=== PATIENT | male | born 1940 ===

== ENCOUNTER 2022-06-03 20:23 | Inpatient (IN) | payer OTHER ==
--- OUTSIDE RECORDS SUMMARY | 2022-06-03 20:31 | XMS REPORT | Continuity of Care Document ---
:1940 Author Organization [facility] t Address [address] [place] [address] Care Team Providers Name Role Phone Asked, No Pcp Primary Care Physician Unavailable MICKIE MCCLURE Attending Clinician Unavailable RODOLFO SALINAS Attending Clinician Unavailable [place] Attending Clinician Unavailable Grover Montemayor Attending Clinician [place] Admitting Clinician Unavailable Grover Montemayor Admitting Clinician Payers Payer Name Policy Type Policy Number Effective Date Expiration Date S samantha MEDICARE PART A [id number] \\[id number] - MEDICARE INDEMNITY/TRADITIO [id number] NAL CHOICE - AETNA MEDIC[place] B-[place]: [id number] 2006 [employer] 00:00:00 AETNA - NAP [id number] 2000 00:00:00 Problems Condition Condition Condition Status Onset Resolution Last Treating Co mments Source Name Details Category Date Date Treatment Clinician Date EYE INJURY EYE Diagnosis Active 2014-082015-05-26 Memoria INJURY 0-06 15:53:00 l Active 00:00: Bertin 05/26/2015 00 [facility] LT LOWER LT LOWER Diagnosis Active 2014-082015-06-08 Memoria LID LID 0-06 06:07:00 l RETRACTION RETRACTION 00:00: Julio rmann Active 00 05/26/2015 [facility] FACIAL FACIAL Diagnosis Active 2015-04-22 Me moria TRAUMA TRAUMA 8- 14:30:00 l EXPOSED EXPOSED 00:00: Bertin HARDWARE HARDWARE 00 Active 04/10/2015 [facility] FACE FACE Diagnosis Active 2015-04-10 Mem oria HARDWARE HARDWARE - 13:13:00 l Active 00:00: Bertin 04/10/2015 00 [facility] COMPLEX COMPLEX Diagnosis Active 2012-082013-06-03 Memoria FACIAL FX FACIAL FX 0-03 15:29:00 l Active 00:00: [place] 05/23/2013 00 [facility] LACERATION LACERATIO Diagnosis Active 2012-082013-05-23 Memoria TO FACE N TO FACE 0-03 17:12:00 l Active 00:00: [place] 05/23/2013 00 [facility] LIFE LIFE Diagnosis Active 2012-082013-05-24 Mem oria FLIGHT FLIGHT 0-03 12:33:00 l BILLING BILLING 00:00: Bertin Active 00 05/23/2013 [facility] Myocardial Problem Resolve 2015-06-07 Memoria infarction Myocardial d 01:33:24 l (disorder) infarction He rmann (disorder) Resolved Problem 06/07/2015 [facility] [place] Gastroesop Gastroeso Problem Active 2015-06-07 Memoria hageal phageal 01:33:24 l reflux reflux Bertin disease disease (disorder) (disorder) Active Problem 06/07/2015 [facility] [place] 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 [place] (disorder) (disorder) Active Problem 06/07/2015 [facility] Fracture Fracture Problem Active 2015-06-07 Memoria of bone of bone 01:33:24 l (disorder) (disorder) He rmann Active Problem 06/07/2015 [facility] Hyperlipid Hyperlipi Problem Active 2015-06-07 Memoria emia demia 01:33:24 l (disorder) (disorder) He rmann Active Problem 06/07/2015 [facility] FRACTURE FRACTURE Diagnosis Active 2013-06-03 Memoria NOS-CLOSED NOS-CLOSED 15:29:00 l Active Griffin castillo [facility] OPEN WOUND OPEN Diagnosis Active 2015-04-22 Memoria CHEEK-COMP WOUND 14:30:00 l L CHEEK-COMP Griffni n L Active [facility] EYELID EYELID Diagnosis Active 2015-06-08 Me moria RETRACTION RETRACTION 06:07:00 l RIGHT RIGHT [place] LOWER LOWER EYELID EYELID Active [facility] Diverticul Diverticu Problem Resolve 2015-06-07 Memoria ar disease lar d 01:33:24 l (disorder) disease Julissa nn (disorder) Resolved Problem 06/07/2015 [facility], [facility] [place] Hyperchlor Hyperchlo Problem Resolve 2015-06-07 Memoria emia remia d 01:33:24 l (disorder) (disorder) He rmann Resolved Problem 06/07/2015 [facility] [place] Allergies, Adverse Reactions, Alerts This patient has no known allergies or adverse reactions. Social History Social Habit Start Date Stop Date Quantity Comments Source Sex Assigned At [birth year] [facility] 00:00:00 00:00:00 Smoking Status Start Date Stop Date Source Tobacco smoking consumption [facility] [place] [place] unknown Social History 2015-06-04 12:45:09 2015-06-04 12:45:09 [facility] Medications Ordered Filled Start Stop Current Ordering Indication Dosage Frequency Signature Comments Components Source Medication Medication Date Date Medication? Clinician (SIG) Name Name No known No No known Metho di medications 2- medication [facility] 11:[facility]: [facility] Naloxone 2014-08 No Notes: Memoria 0-15 Same as l 15:04: Narcan Flumazenil 2014-08 No Notes: Memor ia 0-15 (Same as: l 15:04: Romazicon) Hydromorpho 2014-08 No Notes: Chon bronson ne 0-15 Same as: l 15:04: Dilaudid Ondansetron 2014-08 No Notes: Chon bronson 0-15 (Same as: l 15:04: Zofran) MEDICATION WASTE Product Size: 4 mg Product Wasted: ___ mg Oxycodone 2014-08 No Notes: Memori a 0-15 (Same as: l 15:04: Roxicodone ) Labetalol 2014-08 No 10 mg, 2 Chon bronson 0-15 mL, Route: l 15:04: IVP, Drug form: INJ, Q5Min, Dosing Weight 74.545, kg, PRN Elevated BP, Start date: 06/04/15 10:04:00, Duration: 5 doses or times, Stop date: Limited # of times Hydralazine 2014-08 No Notes: Chon bronson 0-15 (Same as: l 15:04: Apresoline Bertin 00 ) Push over 5 minutes Medrol 4 mg 2014-08 Yes Special Mem oria oral tablet 0-15 Instructio l 15:02: ns: as directed on package labeling Acetaminoph 2014-08 Yes 1 - 2 tab, Memoria en 300 MG / 0-15 PO, Q6H, l Codeine 15:02: PRN Pain, Julissa nn Phosphate 00 X 4 day, # 30 MG Oral 32 tab, 0 Tablet Refill(s) [Tylenol with Codeine #3] Amoxicillin 2014-08 Yes 875 mg = 1 Memoria 875 MG / 0-15 tab, PO, l Clavulanate 15:02: Q12H, X 3 H ermann 125 MG Oral 00 day, # 6 Tablet tab, 0 [Augmentin Refill(s) 875-mg] ceFAZolin 2014-08 No Notes: Memori a 0-15 Same as: l 12:09: Ancef [place] 00 docusate 2014-08 Yes 100 mg = 1 Mem oria sodium 100 0-14 cap, PO, l mg oral 15:19: Daily, PRN Herm delia capsule 00 Constipati on, # 20 cap, 0 Refill(s) Aspirin 325 2014-08 No 325 mg = 1 Memoria MG Oral 0-14 tab, PO, l Tablet 15:18: Daily, # [place] 00 90 tab, 0 Refill(s) multivitami 2014-08 Yes Daily, 0 Me moria n 0-14 Refill(s) l 15:18: Bertin 00 Ranitidine 2014-08 Yes 150 mg = 1 M emoria 150 MG Oral 0-14 tab, PO, l Tablet 15:18: BID, # 60 Griffin n 00 tab, 0 Refill(s) Ondansetron No 4 mg, Memor ia 04-21 Route: l 16:14: IVP, ONCE, Dosing Weight 75, kg, PRN Nausea & Vomiting, Start date: 04/21/15 11:14:00 Naloxone No 0.04 mg, Memor ia 04-21 Route: l 16:14: IVP, [place] 00 Q2MIN, Dosing Weight 75, kg, PRN Narcotic Reversal, Start date: 04/21/15 11:14:00, Duration: 8 doses or times, Stop date: Limited # of times Flumazenil No 0.2 mg, Chon bronson 04-21 Route: l 16:14: IVP, PRN, [place] 00 Dosing Weight 75, kg, PRN Benzodiaze pine Reversal, Initial dose, Start date: 04/21/15 11:14:00, Duration: 30 day, Stop date: 05/21/15 11:13:00 Hydromorpho No 0.2 mg, Mem oria ne 04-21 Route: l 16:14: IVP, Bertin 00 Q5Min, Dosing Weight 75, kg, PRN Pain Score 7-10, Start date: 04/21/15 11:14:00, Duration: 4 doses or times, Stop date: Limited # of times Ancef Yes Special Memoria 04-21 Instructio l 13:03: ns: Surgical Prophylaxi s Only; For patients < 120 kg Acetaminoph Yes 1-2 tab, Me moria en 325 MG / 04-21 PO, Q4-6H, l Hydrocodone 11:43: PRN Pain, H ermann Bitartrate 00 X 5 day, # 10 MG Oral 30 tab, 0 Tablet Refill(s), [Velpen given to ] patient Amoxicillin Yes 875 mg = 1 Memoria 875 MG / 04-21 tab, PO, l Clavulanate 11:43: Q12H, X 7 H ermann 125 MG Oral 00 day, # 14 Tablet tab, 0 [Augmentin Refill(s), 875-mg] given to patient Nexium Yes PO, Daily, Memor ia 04-21 0 l 11:23: Refill(s) ceFAZolin No 2 gm, 50 Chon bronson 04-21 mL, Route: l 04:00: IVPB, Drug form: INJ, PRE OP, Start date: 04/20/15 23:00:00, Duration: 1 day, Stop date: 04/21/15 22:59:00 Aspirin 325 2014- No 325 mg = 1 Memoria MG Oral 8-28 tab, PO, l Tablet 18:34: Daily, # Bertin 00 30 tab, 0 Refill(s) senna 8.6 2012-08 Yes Danilo 17.2 mg, 2 M emoria mg oral 0-16 Jet tab, PO, l tablet 19:36: Jacob Daily, 30 Herm delia 33 tab, Substituti on Allowed, Maintenanc e, TAB ocular 2012-08 Yes Danilo 1 drp, Memoria lubricant 0-16 Jet Each l solution 19:36: Jacob Affected Her ellis 30 Eye, TID, 1 btl, Substitute Allowed, SOLN docusate 2012-08 Yes Danilo 100 mg, 1 Mem oria sodium 100 0-16 Jet cap, PO, l mg oral 19:36: Jacob BID, 30 Julissa nn capsule 19 cap, Substituti on Allowed, CAP Tobradex 2012-08 Yes Danilo 2 drp, Memori a ophthalmic 0-16 Jet BOTH EYES, l suspension 19:35: Jaocb QID, 1 Her ellis 51 btl, Substitute Allowed, SUSP clindamycin 2012-08 Yes Danilo 300 mg, 1 Memoria 300 mg oral 0-16 Jet cap, PO, l capsule 19:35: Jacob Q6H, 28 Julissa nn 37 cap, Substituti on Allowed bacitracin 2012-08 Yes Danilo 1 appl, Mem oria topical 500 0-16 Jet TOP, Q8H, l units/g 19:34: Jacob 1 tube, Julissa nn ointment 08 Substituti on Allowed, OINT Velpen 2012-08 Yes Danilo 1-2 tab, Memoria 10/325 oral 0-16 Jet PO, Q6H, l tablet 19:33: Jacob PRN, 60 Griffin n 25 tab, Pain, Substituti on Allowed, Maintenanc e, TAB aspirin 81 2012-08 Yes Danilo 81 mg, 1 Me moria mg tablet, 0-16 Jet tab, PO, l enteric 19:33: Jacob Daily, 30 Her ellis coated 15 tab, Substituti on Allowed, ECTAB Tobradex 2012-08 No Natalio 2 drp, M emoria ophthalmic 0-15 r Gopal Route: l suspension 18:00: Montemayor BOTH EYES, Bertin 00 QID, Drug form: SUSP, Start date: 06/04/13 13:00:00, Duration: 30 day, Stop date: 07/04/13 9:00:00(to bramycin-d examethaso ne 0.3-0.1% oph 2.5ml BRAYAN) Shake well before using. (Same As: Tobradex) clindamycin 2012-08 No Natalio 900 mg, Memoria 0-15 r Gopal Route: l 17:00: [place] IVPB, Griffin n 00 ABXQ8H, Dosing Weight 79.545, kg, Start date: 06/04/13 12:00:00, Duration: 30 day, Stop date: 07/04/13 4:00:00 Velpen 2012-08 No Kenneth 1 tab, Memoria 10/325 oral 0-14 Sullivan Route: PO, l tablet 20:57: Drug Form: Julissa nn 00 TAB, Dosing Weight 79.545, kg, Q6H, PRN Pain, Start date: 06/03/13 15:57:00, Duration: 30 day, Stop date: 07/03/13 15:56:00Do not exceed 4gm/day of acetaminop hen. (Same as: Velpen 325/10) Velpen 2012-08 No John 1 tab, Memoria 10/325 oral 0-14 Booty Route: PO, l tablet 17:00: Nicole Loredo Drug Form: Bertin 00 TAB, Dosing Weight 79.545, kg, Q6H, Start date: 06/03/13 12:00:00, Duration: 30 day, Stop date: 07/03/13 11:59:00Do not exceed 4gm/day of acetaminop hen. (Same as: Velpen 325/10) dexamethaso 2012-08 No Natalio 10 mg, 1 Memoria ne 0-14 r Gopal mL, Route: l 17:00: [place] IVP, Drug He rmann 00 form: INJ, Q6H, Dosing Weight 79.545, kg, Start date: 06/03/13 12:00:00, Duration: 30 day, Stop date: 07/03/13 11:59:00 Lasix 2012-08 No John 20 mg, 2 Memoria 0-14 Booty mL, Route: l 15:18: Nicole Loredo IV, Drug Her ellis form: INJ, ONCE, Dosing Weight 79.545, kg, Start date: 06/03/13 10:18:00, Stop date: 06/03/13 10:18:00(S yuriy as: Lasix) MiraLax 2012-08 No John 17 gm, 1 Memor ia 0-14 Booty pkt, l 15:16: Nicole Loredo Route: PO, H ermann 00 Drug form: PWDR, ONCE, Dosing Weight 79.545, kg, Start date: 06/03/13 10:16:00, Duration: 1 doses or times, Stop date: 06/03/13 10:16:00Di ssolve in 8 oz of water or juice. (Same as: Miralax) Artificial 2012-08 No Marii 1 drp, Memoria Tears 0-14 Karmen Route: l 14:00: Wegge Each [place] 00 Affected Eye, TID, Drug form: SOLN, Start date: 06/03/13 9:00:00, Duration: 30 day, Stop date: 07/03/13 8:59:00 senna 2012-08 No Roderick 17.2 mg, 2 Mem oria 0-14 Busby tab, l 14:00: Blank Route: PO, Herm delia 00 Drug Form: TAB, Dosing Weight 79.545, kg, Daily, Start date: 06/03/13 9:00:00, Duration: 30 day, Stop date: 07/03/13 8:59:00([facility] as: Senokot) clindamycin 2012-08 No Bree 600 mg, 4 M emoria 0-14 Kemar mL, Route: l 13:00: IVPB, Drug Bertin form: INJ, ABXQ8H, Dosing Weight 79.545, kg, Start date: 06/03/13 8:00:00, Duration: 30 day, Stop date: 07/03/13 7:59:00(cl indamycin 150 mg/1 ml (600 mg/4 ml VL) INJ) (Same As: Cleocin) Insulin 2012-08 No Stevo 10 unit, Mem oria regular 0-14 Justin Byron 0.1 mL, l 11:00: Hernandez Route: [place] 00 SUB-Q, Drug form: SOLN, PRN, Dosing Weight 79.545, kg, PRN Abnormal Lab Result, Start date: 06/03/13 6:00:00, Duration: 30 day, Stop date: 07/03/13 4:59:00, For FSBG 200mg/dL - 249mg/dL 60 units) Stable for 28 days at room temperatur e Expires in days from ____Date Dextrose 2012-08 No Stevo 25 gm, 50 M emoria 50% Syringe 0-14 Justin Byron mL, Route: l 11:00: Hernandez IVP, Drug Form: INJ, Dosing Weight 79.545, kg, PRN, PRN Abnormal Lab Result, Start date: 06/03/13 6:00:00, Duration: 30 day, Stop date: 07/03/13 4:59:00, For FSBG For FSBG < 40mg/dL docusate 2012-08 No Roderick 100 mg, 1 M emoria sodium 100 0-13 Busby cap, l mg oral 22:00: Blank Route: PO, H ermann capsule 00 Drug form: CAP, BID, Dosing Weight 79.545, kg, Start date: 06/02/13 17:00:00, Duration: 30 day, Stop date: 07/02/13 16:59:00(S yuriy as: Colace) (Do Not Crush) bacitracin 2012-08 No Ashley 1 appl, Mem oria topical 0-13 Radha Route: l 21:00: Irving WEAVER, Q8H, [place] 00 Drug form: OINT, Start date: 06/02/13 16:00:00, Duration: 30 day, Stop date: 07/02/13 15:59:00 acetaminoph 2012-08 No John 975 mg, 3 Memoria en 0-13 Booty tab, l 17:00: Rivera Jr Route: PO, H ermann 00 Drug form: TAB, Q6H, Dosing Weight 79.545, kg, Start date: 06/02/13 12:00:00, Duration: 30 day, Stop date: 07/02/13 11:59:00Do not exceed 4 gm/day. (Same as: Tylenol) OXYcodone 5 2012-08 No John 5 mg, 1 Me moria mg 0-13 Booty tab, l immediate 17:00: Nicole Loredo Route: PO, Bertin release 00 Drug form: TAB, Q4H, Dosing Weight 79.545, kg, Start date: 06/02/13 12:00:00, Duration: 30 day, Stop date: 07/02/13 11:59:00(S yuriy as: Roxicodone ) OXYcodone 5 2012-08 No John 5 mg, 1 Me moria mg 0-13 Booty tab, l immediate 14:06: Nicole Loredo Route: PO, [place] release 00 Drug form: TAB, Q6H, Dosing Weight 79.545, kg, PRN Pain, Start date: 06/02/13 9:06:00, Duration: 30 day, Stop date: 07/02/13 9:05:00(Sa me as: Roxicodone ) dexamethaso 2012-08 No Roderick 10 mg, 2.5 Memoria ne 0-13 Busby mL, Route: l 05:00: Blank IVP, Drug Julissa nn 00 form: INJ, Q6H, Dosing Weight 79.545, kg, Start date: 06/02/13 0:00:00, Stop date: 06/02/13 23:59:00Co ncentratio n: 4mg/ml Sublimaze 2012-08 No Roderick 1,000 Chon bronson 1,000 0-12 Busby microgram, l microgram 21:54: Blank 20 mL, Her ellis 00 Rate: Titrate as directed, Dosing Weight 79.545, kg, Route: IV, Total Volume: 20 ml, Duration: 30 day, Stop date: 07/01/13 16:53:00, Replace Every: 24 hr FENTanyl 2012-08 No Sunday 1,000 Memoria 1000 mcg in 0-12 Rehrer microgram, l 20 mL 21:43: 20 mL, Bertin (titrate) 00 Rate: IV 1,000 Titrate as microgram directed, Dosing Weight 79.545, kg, Route: IV, Total Volume: 20 ml, Duration: 30 day, Stop date: 07/01/13 16:43:00, Replace Every: 24 hr propofol 10 2012-08 No Roderick 1,000 mg, Memoria mg/ml 0-12 Busby 100 mL, l (titrate) 21:41: Blank Rate: Herm delia 1,000 mg 00 Titrate as directed, Dosing Weight 79.545, kg, Route: IV, Total Volume: 100 ml, Start date: 06/01/13 16:41:00, Duration: 30 day, Stop date: 07/01/13 16:40:00, Replace Every: 12 hrIf Diprivan - change bottle & tubing every 12 hr Per state nursing law propofol can only be given by a nurse if patient is intubated or being intubated (unless the nurse is a BOTTLE LABEL INSPECTOR). Same as: Diprivan normal 2012-08 No Bree 1,000 mL, Memori a saline 0.9% 0-11 Kemar Rate: 100 l IV 1,000 mL 10:49: ml/hr, Herm delia 00 Infuse over: 10 hr, Route: IV, Dosing Weight 79.545 kg, Total Volume: 1,000, Start date: 05/31/13 5:49:00, Duration: 30 day, Stop date: 06/30/13 5:48:00 Fish Oil 2012-08 Yes 1 cap, PO, Mem oria 0-09 Daily, l 21:14: Substituti Bertin 02 on Allowed aspirin 325 2012-08 No 325 mg, 1 M emoria mg tablet 0-09 tab, PO, l 21:13: Q4H, PRN, Bertin 55 60 tab, Fever, Substituti on Allowed, TAB Unknown 2012-08 No 1 tab, PO, Chon bronson Home 0-09 BID, PRN, l Medication 21:13: constipati H ermann 15 on, Substituti on Allowed, OTC stool stoftenerO TC stool stoftener Zetia 10 mg 2012-08 Yes 10 mg, 1 Me moria oral tablet 0-09 tab, PO, l 21:12: Daily, 90 [place] 54 tab, Substituti on Allowed, TAB Lipitor 80 2012-08 Yes 80 mg, 1 Mem oria mg oral 0-09 tab, PO, l tablet 21:12: Daily, 30 Griffin n 39 tab, Substituti on Allowed, TAB Zocor 2012-08 No Stevo 40 mg, 2 Memor ia 0-08 Justin Byron tab, l 02:00: Hernandez Route: PO, [place] 00 Drug form: TAB, Bedtime, Dosing Weight 79.545, kg, Start date: 05/27/13 21:00:00, Duration: 30 day, Stop date: 06/25/13 21:00:00(S yuriy as: Zocor) clindamycin 2012-08 No Roderick 900 mg, 6 Memoria 0-07 Busby mL, Route: l 15:00: Blank IVPB, Drug Herm delia 00 form: INJ, ABXQ8H, Dosing Weight 79.545, kg, Start date: 05/27/13 10:00:00, Stop date: 06/02/13 2:00:00( me As: Cleocin) docusate 2012-08 No Stevo 100 mg, 1 M emoria sodium 100 0-07 Justin Byron cap, l mg oral 15:00: Hernandez Route: PO, Herm delia capsule 00 Drug form: CAP, Q12H, Dosing Weight 95, kg, Start date: 05/27/13 10:00:00, Duration: 30 day, Stop date: 06/26/13 9:00:00([facility] as: Colace) (Do Not Crush) glucagon 2012-08 No Mickey 1 mg, Chon bronson 0-06 Boutris Route: IM, l 17:12: Drug form: Bertin 00 PDR/INJ, PRN, Dosing Weight 79.545, kg, PRN Blood Glucose Results, Start date: 05/26/13 12:12:00, Duration: 30 day, Stop date: 06/25/13 11:11:00 Dextrose 2012-08 No Stevo 25 gm, 50 M emoria 50% Syringe 0-06 Justin Byron mL, Route: l 17:12: Hernandez IVP, Drug [place] 00 Form: INJ, Dosing Weight 79.545, kg, PRN, PRN Blood Glucose Results, Start date: 05/26/13 12:12:00, Duration: 30 day, Stop date: 06/25/13 11:11:00 insulin 2012-08 No Stevo 3 unit, Chon bronson aspart 0-06 Justin Byron 0.03 mL, l 17:12: Hernandez Route: Bertin 00 SUB-Q, Drug form: SOLN, TID-Before Meals, Dosing Weight 79.545, kg, PRN Blood Glucose Results, Start date: 05/26/13 12:12:00, Duration: 30 day, Stop date: 06/25/13 12:11:00Ro ll in palms of hands gently; Do not shake vigorously . (Same as: NovoLog) "single patient use only" Stable for 28 days at room temperatur e. Expires in days from ____Date simvastatin 2012-08 No Stevo 40 mg, 1 Memoria 0-06 Justin Byron tab, l 02:00: Hernandez Route: PO, Drug form: TAB, Bedtime, Dosing Weight 79.545, kg, Start date: 05/25/13 21:00:00, Duration: 30 day, Stop date: 06/23/13 21:00:00(S yuriy as: Zocor) Velpen 5/325 2012-08 No Sunday 1 tab, Chon bronson oral tablet 0-05 Rehrer Route: PO, l 17:00: Drug Form: [place] 00 TAB, Dosing Weight 79.545, kg, Q4H, Start date: 05/25/13 12:00:00, Duration: 30 day, Stop date: 06/24/13 8:00:00(Sa me as: Velpen 325/5) Do not exceed 4gm/day of acetaminop hen. famotidine 2012-08 No Mickey 20 mg, 1 Memoria 0-05 Boutris tab, l 15:00: Route: PO, Drug form: TAB, Q24H, Dosing Weight 79.545, kg, Start date: 05/25/13 10:00:00, Duration: 30 day, Stop date: 06/23/13 10:00:00(S yuriy as: Pepcid) dexamethaso 2012-08 No Newell 4 mg, 2 M emoria ne 0-05 Aaron tab, l 14:00: Aijazi Route: PO, Julissa Drug form: TAB, Q12H, Dosing Weight 79.545, kg, Start date: 05/25/13 9:00:00, Duration: 3 day, Stop date: 05/27/13 21:00:00, Pediatric DosingPedi atric DosingGive with food. (Same As: Decadron) Velpen 5/325 2012-08 No Roderick 1 tab, M emoria oral tablet 0-05 Busby Route: PO, l 13:31: Blank Drug Form: Herm delia 00 TAB, Dosing Weight 79.545, kg, Q4H, PRN Pain, Start date: 05/25/13 8:31:00, Duration: 30 day, Stop date: 06/24/13 8:30:00(Sa me as: Velpen 325/5) Do not exceed 4gm/day of acetaminop hen. clindamycin 2012-08 No Newell 600 mg, 4 Memoria 0-05 Aaron mL, Route: l 13:00: Aijazi IVPB, Drug Julissa nn 00 form: INJ, ABXQ8H, Dosing Weight 79.545, kg, Start date: 05/25/13 8:00:00, Duration: 30 day, Stop date: 06/24/13 0:00:00(cl indamycin 150 mg/1 ml (600 mg/4 ml VL) INJ) (Same As: Cleocin) Zofran 2012-08 No Newell 4 mg, Memoria 0-04 Aaron Route: IV, l 21:18: Aijazi Drug form: Julissa nn 00 INJ, Q4H, Dosing Weight 79.545, kg, PRN Nausea, Start date: 05/24/13 16:18:00, Duration: 30 day, Stop date: 06/23/13 16:17:00 Zofran 2012-08 No Newell 4 mg, 2 Memori a 0-04 Aaron mL, Route: l 21:17: Aijazi IVP, Drug Griffin n 00 form: INJ, ONCE, Dosing Weight 79.545, kg, Start date: 05/24/13 16:17:00, Stop date: 05/24/13 16:17:00(S yuriy as: Zofran) aspirin 2012-08 No Jason Elkin 81 mg, 1 Me moria 0-04 Fuentes tab, l 20:14: Route: PO, Bertin 00 Drug form: ECTAB, Daily, Dosing Weight 79.545, kg, Priority: STAT, Start date: 05/24/13 15:14:00, Duration: 30 day, Stop date: 06/23/13 9:00:00Do not crush or chew. (Same As: Ecotrin) Velpen 2012-08 No Newell 1 tab, Memoria 10/325 oral 0-04 Aaron Route: PO, l tablet 17:00: Aijazi Drug Form: Her ellis 00 TAB, Dosing Weight 79.545, kg, Q4H, Start date: 05/24/13 12:00:00, Duration: 30 day, Stop date: 06/23/13 8:00:00Do not exceed 4gm/day of acetaminop hen. (Same as: Velpen 10) Velpen 2012-08 No Newell 1 tab, Memoria 10/325 oral 0-04 Aaron Route: PO, l tablet 16:12: Aijazi Drug Form: Her ellis 00 TAB, Dosing Weight 79.545, kg, Q4H, PRN Pain, Start date: 05/24/13 11:12:00, Duration: 30 day, Stop date: 06/23/13 11:11:00Do not exceed 4gm/day of acetaminop hen. (Same as: Velpen 32510) pneumococca 2012-08 No SYSTEM 0.5 ml, M emoria l 23-valent 0-04 SYSTEM Route: IM, l vaccine 14:00: Drug Form: Herm delia 00 INJ, Start date: 05/24/13 9:00:00, Stop date: 05/24/13 9:00:00 bisacodyl 2012-08 No Anthony 10 mg, 1 Me moria 0-04 Artem supp, l 14:00: Allenson Route: SC, Her ellis 00 Drug form: SUPP, Daily, Dosing Weight 95, kg, Start date: 05/24/13 9:00:00, Duration: 30 day, Stop date: 06/22/13 9:00:00([facility] As: Dulcolax, Bisco-Lax) Ancef 2012-08 No Audra 2 gm, Memoria 0-04 Radha Route: l 13:45: Hammer IVPB, Bertin 00 ONCE, Dosing Weight 79.545, kg, Start date: 05/24/13 8:45:00, Duration: 1 doses or times, Stop date: 05/24/13 8:45:00 Lovenox 2012-08 No Jean 30 mg, 0.3 M emoria 0-04 Morgan mL, Route: l 07:00: Gutiérrez SUB-Q, [place] 00 Drug form: INJ, Q12H, Dosing Weight 79.545, kg, Start date: 05/24/13 2:00:00, Duration: 30 day, Stop date: 06/22/13 16:00:00(S yuriy as: Lovenox) Unasyn 2012-08 No Anthony 1.5 gm, 1 Chon bronson 0-04 Artem ea, Route: l 05:00: Allenson IV, Drug Julissa nn form: PDR/INJ, Q6H, Dosing Weight 95, kg, Start date: 05/24/13 0:00:00, Duration: 1 day, Stop date: 05/24/13 18:00:00Do sing based on Ampicillin component (Same as: Unasyn) famotidine 2012-08 No Stevo 20 mg, 2 Memoria 0-04 Justin Byron mL, Route: l 02:00: Hernandez IVPB, Drug [place] form: INJ, Q12H, Dosing Weight 95, kg, Start date: 05/23/13 21:00:00, Duration: 30 day, Stop date: 06/22/13 9:00:00(Sa me as: Pepcid) Can be dilute in 5-10cc NS IVP: Slow IV push over at least 2 minutes. docusate 2012-08 No Anthony 100 mg, 10 M emoria 0-04 Artem mL, Route: l 02:00: Allenson NG, Drug Julissa nn form: LIQ, Q12H, Dosing Weight 95, kg, Start date: 05/23/13 21:00:00, Duration: 30 day, Stop date: 06/22/13 9:00:00(Sa me as: Colace) FENTanyl 2012-08 No Anthony 20 mL, Memor ia 1000 mcg in 0-04 Artem Rate: l 20 mL 00:31: Allenson Titrate., Her ellis (titrate) 00 Dosing IV 20 mL Weight 95, kg, Route: IV, Total Volume: 20, Duration: 30 day, Stop date: 06/22/13 19:31:00, Replace Every: 24 hr midazolam 2012-08 No Stevo 50 mg, 50 Memoria 50 mg in NS 0-04 Justin Byron mL, Rate: l 50 ml 00:31: Hernandez 1 mg/hr. Bertin (titrate) 00 Titrate to IV 50 mg maintain goal RASS score., Dosing Weight 95, kg, Route: IV, Total Volume: 50, Duration: 30 day, Stop date: 06/22/13 19:30:00, Replace Every: 24 hr(Same as: Versed) Insulin 2012-08 No Mickey 4 unit, Mem oria regular 0-04 Boutris 0.04 mL, l 00:31: Route: [place] 00 SUB-Q, Drug form: SOLN, PRN, Dosing Weight 95, kg, PRN Abnormal Lab Result, Start date: 05/23/13 19:31:00, Duration: 30 day, Stop date: 06/22/13 19:30:00, For [facility] 126mg/dL - 140mg/dL 60 units) Stable for 28 days at room temperatur e Expires in days from ____Date Dextrose 2012-08 No Mickey 12.5 gm, M emoria 50% Syringe 0-04 Boutris 25 mL, l 00:31: Route: [place] 00 IVP, Drug Form: INJ, Dosing Weight 95, kg, PRN, PRN Abnormal Lab Result, Start date: 05/23/13 19:31:00, Duration: 30 day, Stop date: 06/22/13 19:30:00, For FSBG 40mg/dL - 60mg/dLFor FSBG 40mg/dL - 60mg/dL D5W 1/2NS + 2012-08 No Jean 1,000 mL, Memoria KCL 20mEq/L 0-04 Morgan Rate: 100 l 1000ml 00:27: Gutiérrez ml/hr, Bertin (Premix) 00 Infuse 1,000 mL over: 10 hr, Route: IV, Dosing Weight 95 kg, Total Volume: 1,000, Start date: 05/23/13 19:27:00, Duration: 30 day, Stop date: 06/22/13 19:26:00PR EMIX IV - Do Not Alter Lactated 2012-08 No Ashley 1,000 mL, Mem oria Ringers IV 0-03 Radha Rate: 100 l 1,000 mL 23:20: Irving ml/hr, Griffin n 00 Infuse over: 10 hr, Route: IV, Dosing Weight 95 kg, Total Volume: 1,000, Priority: STAT, Start date: 05/23/13 18:20:00, Stop date: 06/22/13 18:19:00 Lactated 2012-08 No Eddie 500 mL, Memori a Ringers 0-03 Edgar Rate: 500 l (Bolus) IV 23:19: Hunter ml/hr, H ermann 500 mL 00 Infuse over: 1 hr, Route: IV, Dosing Weight 95 kg, Total Volume: 500, Bolus Dose, Priority: STAT, Start date: 05/23/13 18:19:00, Duration: 1 doses or times, Stop date: 05/23/13 19:18:00 Visipaque 2012-08 No Nick G 150 mL, Memoria 320mg/ml 0-03 Jose Alejandro Route: l 21:47: IVP, Drug [place] 00 Form: SOLN, Dosing Weight 95, kg, ONCALL, STAT, Start date: 05/23/13 16:47:00, Duration: 1 doses or times, Dose = 2.2ml/kg, Max dose = 150ml -- "To be infused by Radiology Staff ONLY"Dose = 2.2ml/kg, Max dose = 150ml -- "To be infused by Radiology Staff ONLY" FENTanyl 2012-08 No Eddie 1,000 Memoria 1000 mcg in 0-03 Edgar microgram, l 20 mL 21:19: Hunter 20 mL, Griffin n (titrate) 00 Rate: IV 1,000 Titrate as microgram directed, Dosing Weight 95, kg, Route: IV, Total Volume: 20 ml, Duration: 30 day, Stop date: 06/22/13 16:19:00, Replace Every: 24 hr FENTanyl 2012-08 No Stevo 1,000 Memor ia 1000 mcg in 0-03 Justin Byron microgram, l 20 mL 21:13: Hernandez 20 mL, Bertin (titrate) 00 Rate: IV 1,000 Titrate as microgram directed, Dosing Weight 95, kg, Route: IV, Total Volume: 20 ml, Duration: 30 day, Stop date: 06/22/13 16:12:00, Replace Every: 24 hr tetanus-dip 2012-08 No Paulina M 0.5 mL, Memoria htheria 0-03 Mason Route: IM, l toxoids 21:12: Dosing [place] 00 Weight 95, kg, ONCE, STAT, Start date: 05/23/13 16:12:00, Stop date: 05/23/13 16:12:00 Ancef 2012-08 No Eddie 1 gm, Memoria 0-03 Edgar Route: l 20:47: Hunter IVPB, Drug Her ellis 00 form: PDR/INJ, ONCE, Dosing Weight 95, kg, Priority: STAT, Start date: 05/23/13 15:47:00, Stop date: 05/23/13 15:47:00(S yuriy As: Ancef, Kefzol) tetanus 2012-08 No Paulina M 0.5 ml, Mem oria toxoid 0-03 Mason Route: IM, l 20:47: Drug Form: Bertin 00 INJ, Dosing Weight 95, kg, ONCE, STAT, Start date: 05/23/13 15:47:00, Stop date: 05/23/13 15:47:00[facility] refrigerat ed. succinylcho 2012-08 No Eddie 150 mg, Mem oria line 0-03 Edgar Route: IV, l 20:31: Hunter ONCE, Dosing Weight 95, kg, Start date: 05/23/13 15:31:00, Stop date: 05/23/13 15:31:00 ketamine 2012-08 No Eddie 100 mg, Memori a 0-03 Edgar Route: IV, l 20:31: Hunter ONCE, Dosing Weight 95, kg, Start date: 05/23/13 15:31:00, Stop date: 05/23/13 15:31:00 fentanyl 2012-08 No Eddie 100 Memoria 0-03 Edgar microgram, l 20:30: Hunter Route: IV, Her ellis 00 ONCE, Dosing Weight 95, kg, Start date: 05/23/13 15:30:00, Stop date: 05/23/13 15:30:00 propofol 10 2012-08 No Stevo 1,000 mg, Memoria mg/ml 0-03 Justin Byron 100 mL, l (titrate) 20:24: Hernandez Rate: Bertin 1,000 mg 00 Titrate as directed, Route: IV, Total Volume: 100 ml, Start date: 05/23/13 15:24:00, Duration: 30 day, Stop date: 06/22/13 15:23:00, Replace Every: 24 hrIf Diprivan - change bottle & tubing every 12 hr Per state nursing law propofol can only be given by a nurse if patient is intubated or being intubated (unless the nurse is a BOTTLE LABEL INSPECTOR). Same as: Diprivan Saline 2012-08 No Lea K 5 mL, Memoria Flush 0.9% 0-03 Gutiérrez Route: l 19:57: IVP, Drug [place] 00 Form: INJ, kg, PRN, PRN Line Flush, Administer at least once every 12 hours, Start date: 05/23/13 14:57:00, Duration: 30 day, Stop date: 06/22/13 14:56:00(S yuriy as: BD Posiflush) Immunizations Ordered Immunization Filled Immunization Date Status Commen ts Source Name Name pneumococcal 2013-05-24 Completed [facility] 23-valent vaccine 21:49:00 [place] pneumococcal 2013-05-24 Completed [facility] 23-valent vaccine 21:49:00 Bertin tetanus-diphtheria 2013-05-23 Completed Memori al toxoids 21:12:00 Bertin tetanus-diphtheria 2013-05-23 Completed Memori al toxoids 21:12:00 Bertin Vital Signs Vital Name Observation Time Observation Value Comments Source Systolic (mm Hg) 2015-06-04 15:50:00 Chon rial Bertin Diastolic (mm Hg) 2015-06-04 15:50:00 Mem orial [place] Heart Rate 2015-06-04 15:50:00 [facility] Bertin Respitory Rate 2015-06-04 15:50:00 Memori al [place] Systolic (mm Hg) 2015-06-04 15:30:00 Chon rial [place] Diastolic (mm Hg) 2015-06-04 15:30:00 Mem orial Bertin Respitory Rate 2015-06-04 15:30:00 Memori al [place] Systolic (mm Hg) 2015-06-04 15:15:00 Chon rial [place] Diastolic (mm Hg) 2015-06-04 15:15:00 Mem orial [place] Respitory Rate 2015-06-04 15:15:00 Memori al [place] Heart Rate 2015-06-04 12:06:00 [facility] Bertin BMI Calculated 2015-06-03 15:20:00 Memori al Bertin Height 2015-06-03 15:20:00 165.1 cm [facility] [place] Weight 2015-06-03 15:20:00 [facility] Bertin Systolic (mm Hg) 2015-04-21 17:08:00 Chon rial [place] Diastolic (mm Hg) 2015-04-21 17:08:00 Mem orial Bertin Respitory Rate 2015-04-21 17:08:00 Memori al [place] Heart Rate 2015-04-21 17:08:00 [facility] [place] Systolic (mm Hg) 2015-04-21 16:30:00 Chon rial Bertin Diastolic (mm Hg) 2015-04-21 16:30:00 Mem orial Bertin Respitory Rate 2015-04-21 16:30:00 Memori al [place] Systolic (mm Hg) 2015-04-21 16:15:00 Chon rial [place] Diastolic (mm Hg) 2015-04-21 16:15:00 Mem orial [place] Respitory Rate 2015-04-21 16:15:00 Memori al [place] Height 2015-04-21 11:21:00 165.1 cm [facility] [place] Weight 2015-04-21 11:21:00 [facility] Bertin BMI Calculated 2015-04-21 11:21:00 Memori al [place] Heart Rate 2015-04-21 11:21:00 [facility] [place] BMI Calculated 2015-04-17 18:15:00 Memori al Bertin Weight 2015-04-17 18:15:00 [facility] Bertin Height 2015-04-17 18:15:00 165.1 cm [facility] [place] Diastolic (mm Hg) 2013-06-05 16:00:00 Mem orial Bertin Systolic (mm Hg) 2013-06-05 16:00:00 Chon rial [place] Temperature Oral (F) 2013-06-05 16:00:00 98.9 F [facility] Bertin Heart Rate 2013-06-05 16:00:00 [facility] Bertin Respitory Rate 2013-06-05 16:00:00 Memori al Bertin Temperature Oral (F) 2013-06-05 12:00:00 98.4 F [facility] Bertin Heart Rate 2013-06-05 12:00:00 [facility] Bertin Respitory Rate 2013-06-05 12:00:00 Memori al [place] Systolic (mm Hg) 2013-06-05 12:00:00 Chon rial [place] Diastolic (mm Hg) 2013-06-05 12:00:00 Mem orial [place] Respitory Rate 2013-06-05 08:21:00 Memori al Bertin Diastolic (mm Hg) 2013-06-05 08:21:00 Mem orial Bertin Systolic (mm Hg) 2013-06-05 08:21:00 Chon rial [place] Heart Rate 2013-06-05 08:21:00 [facility] Bertin Temperature Oral (F) 2013-06-05 08:21:00 98.9 F [facility] [place] Height 2013-05-24 10:12:00 167.64 cm [facility] Bertin Height 2013-05-24 05:53:00 167.64 cm [facility] Bertin Weight 2013-05-24 05:53:00 [facility] [place] Height 2013-05-24 01:50:00 167.64 cm [facility] [place] Weight 2013-05-24 01:50:00 [facility] Bertin Weight 2013-05-23 20:24:00 [facility] [place] Procedures Procedure Date / Time Performed Performing Clinician Sourc e Colonoscopy [facility] [place] [facility]or [facility]astinum [facility] operations 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 Exploratory laparotomy [facility] Eye [facility] Operation [facility] Plan of Care Planned Activity Planned Date Details Comments Source Future Scheduled 2022-05-12 HEPATITIS B VACCINES Met [facility] Test 09:44:35 (1 of 3 - 3-dose series) [code = HEPATITIS B VACCINES (1 of 3 - 3-dose series)] Future Scheduled 2022-05-12 COVID-19 VACCINE (#1) [facility] Test 09:44:35 [code = COVID-19 VACCINE (#1)] Future Scheduled 2022-05-12 SHINGLES VACCINES (1 [facility] Test 09:44:35 of 2) [code = SHINGLES VACCINES (1 of 2)] Future Scheduled 2022-05-12 65+ [facility] 09:44:35 VACCINE (1 - PCV) [code = 65+ PNEUMOCOCCAL VACCINE (1 - PCV)] Future Scheduled 2022-05-12 INFLUENZA VACCINE Method [facility] Test 09:44:35 [code = INFLUENZA VACCINE] Encounters Start End Encounter Admission Attending Care Care Encounter Source Date/Time Date/Time Type Type Clinicians Facility Department ID 2021-03-24 Outpatient MICKIE MCCLURE [facility] [id number] [place] 22:04:44 Health 2022-03-28 2022-03-28 Outpatient BRAD, [facility] [id number] [facility] 08:14:24 09:29:31 RODOLFO benito of Medicin e 2021-12-27 2021-12-27 Outpatient BRAD, [facility] [id number] [facility] 08:08:17 08:46:57 RODOLFO benito of Medicin e 2021-11-15 2021-11-15 Outpatient BRAD, [facility] [id number] [facility] 08:56:36 09:43:28 RODOLFO Downs e of Medicin e 2021-09-22 2021-09-22 Outpatient BRAD, [facility] [id number] [facility] 09:16:29 09:52:33 RODOLFO Downs e of Medicin e 2021-08-25 2021-08-25 Outpatient BRAD, [facility] [id number] [facility] 10:13:11 11:42:47 RODOLFO benito of Medicin e 2021-07-29 2021-07-29 Outpatient BRAD, [facility] [id number] [facility] 11:45:02 13:16:06 RODOLFO benito of Medicin e 2016-07-12 2016-07-12 Outpatient Maluf_C [facility]G [id number] [place] 03:16:00 03:16:00 [facility] 2015-06-04 2015-06-05 OBS [facility] [id number] Memoria 10:29:00 04:59:[address] 2015-06-04 2015-06-04 Outpatient [facility] [id number] 05:29:00 23:59:00 Christopher 01 Gopal 2015-04-21 2015-04-22 OBS Day nullFlavo [facility] [id number] Memoria 10:11:00 04:59:00 Surgery r [place] 00 l [facility] 2015-04-21 2015-04-21 Outpatient Sim [facility] [id number] 05:11:00 23:59:00 Christopher 00 [facility] 2015-03-30 2015-03-31 Outpt Diag nullFlavo [facility] [id number] Memoria 13:32:00 04:59:00 Services r Outpatient 00 l Imaging [facility] 2015-03-30 2015-03-30 Outpatient Sim [facility] [id number] 08:32:00 23:59:00 Christopher 00 [facility] 2013-05-23 2013-06-05 Inpatient nullFlavo [facility] [id number] Memoria 19:18:00 15:30:00 [facility] 67 l [facility] 2013-05-23 2013-06-05 Outpatient [id number]. [id number]. 4 [id number] Memoria 14:58:00 15:30:00 [id number] l 3.615.0.1 5.0.[address] [facility] 2013-05-23 2013-06-05 Outpatient 2.16.840. 2.16.840.1. 4 [id number] Memoria 14:58:00 15:30:00 [id number] l 3.615.0.1 5.0.101 Griffin n 01 [facility] 2013-05-23 2013-06-05 Outpatient 2.16.840. 2.16.840.1. 4 [id number] Memoria 14:58:00 15:30:00 [id number] l 3.615.0.1 5.0.101 Griffin n [facility] 2013-05-23 2013-06-05 Outpatient 2.16.840. 2.16.840.1. 4 [id number] Memoria 14:58:00 15:30:00 [id number] l 3.615.0.1 5.0.101 Griffin n [facility] 2013-05-23 2013-06-05 Outpatient 2.16.840. 2.16.840.1. 4 [id number] Memoria 14:58:00 15:30:00 [id number] 67 l 3.615.0.1 5.0.[address] [facility] 2013-05-23 2013-05-23 AA nullFlavo [facility] [id number] Memoria 14:45:00 23:59:00 r Medical 70 l [facility] Results Test Description Test Time Test Comments Results Result Comments Source CHEM [facility] 2015-06-04 11:42:00 Test Item Value Reference Range Interpretation Comme nts eGFR (test code = eGFR) 68 [facility]2015-10-15 11:42:00 Test Item Value Reference Range Interpretation Comments CO2 (test code = CO2) 31 24-32 [facility]2015-10-15 11:42:00 Test Item Value Reference Range Interpretation Comments AGAP (test code = AGAP) 9.2 10.0-20.0 [facility]2015-10-15 11:42:00 Test Item Value Reference Range Interpretation Comments Calcium Lvl (test code = Calcium Lvl) 9.6 8.5-10.5 [facility]2015-10-15 11:42:00 Test Item Value Reference Range Interpretation Comments Chloride Lvl (test code = Chloride Lvl) 101 95-109 [facility]2015-10-15 11:42:00 Test Item Value Reference Range Interpretation Comments Potassium Lvl (test code = Potassium 4.2 3.5-5.1 Lvl) [facility]2015-10-15 11:42:00 Test Item Value Reference Range Interpretation Comments Creatinine Lvl (test code = Creatinine 1.1 0.5-1.4 Lvl) [facility]2015-10-15 11:42:00 Test Item Value Reference Range Interpretation Comments BUN (test code = BUN) 20 7-22 [facility]2015-10-15 11:42:00 Test Item Value Reference Range Interpretation Comments Sodium Lvl (test code = Sodium Lvl) 137 135-145 [facility]2015-10-15 11:42:00 Test Item Value Reference Range Interpretation Comments Glucose Lvl (test code = Glucose Lvl) 104 70-99 [facility]2015-08-28 19:10:00 Test Item Value Reference Range Interpretation Comments eGFR (test code = eGFR) 84 [facility]2015-08-28 19:10:00 Test Item Value Reference Range Interpretation Comments Glucose Lvl (test code = Glucose Lvl) 79 70-99 [facility]2015-08-28 19:10:00 Test Item Value Reference Range Interpretation Comments BUN (test code = BUN) 17 7-22 [facility]2015-08-28 19:10:00 Test Item Value Reference Range Interpretation Comments Sodium Lvl (test code = Sodium Lvl) 140 135-145 [facility]2015-08-28 19:10:00 Test Item Value Reference Range Interpretation Comments Potassium Lvl (test code = Potassium 4.2 3.5-5.1 Lvl) [facility]2015-08-28 19:10:00 Test Item Value Reference Range Interpretation Comments Creatinine Lvl (test code = Creatinine 0.9 0.5-1.4 Lvl) [facility]2015-08-28 19:10:00 Test Item Value Reference Range Interpretation Comments Chloride Lvl (test code = Chloride Lvl) 103 95-109 [facility]2015-08-28 19:10:00 Test Item Value Reference Range Interpretation Comments CO2 (test code = CO2) 31 24-32 [facility]2015-08-28 19:10:00 Test Item Value Reference Range Interpretation Comments Calcium Lvl (test code = Calcium Lvl) 8.8 8.5-10.5 [facility]2015-08-28 19:10:00 Test Item Value Reference Range Interpretation Comments AGAP (test code = AGAP) 10.2 10.0-20.0 [facility]chJMJNNKNSLX6585-83-60 19:10:00 Test Item Value Reference Range Interpretation Comments Hgb (test code = Hgb) 15.1 14.0-18.0 [facility] CenterQsxgnltSITXGQVHXW9132-07-05 19:10:00 Test Item Value Reference Range Interpretation Comments Hct (test code = Hct) 46.6 42.0-54.0 [facility] CenterAfmwdtyAVUAFNRFWI9337-93-63 19:10:00 Test Item Value Reference Range Interpretation Comments WBC (test code = WBC) 8.6 3.7-10.4 [facility] CenterPnefqgxCLABFXJISG8598-53-38 19:10:00 Test Item Value Reference Range Interpretation Comments RBC (test code = RBC) 5.15 4.70-6.10 [facility] CenterBsdvqyzFQZLYREHGJ7571-04-05 19:10:00 Test Item Value Reference Range Interpretation Comments MPV (test code = MPV) 7.8 7.4-10.4 [facility] CenterZxeoiytCABFEWETWF0280-98-65 19:10:00 Test Item Value Reference Range Interpretation Comments MCV (test code = MCV) 90.5 80.0-94.0 [facility] CenterArsdvelQFKULGXBVZ7207-45-27 19:10:00 Test Item Value Reference Range Interpretation Comments RDW (test code = RDW) 14.2 11.5-14.5 [facility] CenterOkodfwoBEBPYHQRMD6363-53-29 19:10:00 Test Item Value Reference Range Interpretation Comments MCHC (test code = MCHC) 32.4 32.0-36.0 [facility] CenterHenzzlhHBTJMKJFOG2058-54-38 19:10:00 Test Item Value Reference Range Interpretation Comments Platelet (test code = Platelet) 285 133-450 [facility] CenterOusrygjJJSTKTVKZZ4681-98-54 19:10:00 Test Item Value Reference Range Interpretation Comments MCH (test code = MCH) 29.3 pg 27.0-31.0 [facility] CenterYpbywufIDBKZXCDUK7211-93-94 19:10:00 Test Item Value Reference Range Interpretation Comments Basophils (test code = 1.2 See_Comment [Aut omated message] The Basophils) system which ge nerated this result tra nsmitted reference range : <=1.0. The reference r jana was not used to int erpret this result as normal/abnormal . [facility] CenterKuhvnvvOBRTWLXJNK3556-36-60 19:10:00 Test Item Value Reference Range Interpretation Comments Segs-Bands # (test code = Segs-Bands #) 5.3 1.5-8.1 [facility] CenterAhiospnNPDWVJRASL1845-14-74 19:10:00 Test Item Value Reference Range Interpretation Comments Lymphocytes # (test code = Lymphocytes 2.1 1.0-5.5 #) [facility] CenterFulxmmfOHQBIFCFQM7504-20-07 19:10:00 Test Item Value Reference Range Interpretation Comments Lymphocytes (test code = Lymphocytes) 24.0 20.0-40.0 [facility] CenterOxwamtvBWLWCFKGFV9585-92-96 19:10:00 Test Item Value Reference Range Interpretation Comments Eosinophils (test code = 3.1 See_Comment [A utomated message] The Eosinophils) system which ge nerated this result tra nsmitted reference range : <=4.0. The reference r jana was not used to int erpret this result as normal/abnormal . [facility] CenterGiivkcgAEJEXGRAQK2265-66-12 19:10:00 Test Item Value Reference Range Interpretation Comments Monocytes (test code = Monocytes) 9.4 2.0-12.0 [facility] CenterByfwxnuIQFRCDPKPH6689-28-18 19:10:00 Test Item Value Reference Range Interpretation Comments Monocytes # (test code 0.8 See_Comment [Aut omated message] The = Monocytes #) system which generated this result tra nsmitted reference range : <=0.8. The reference r jana was not used to int erpret this result as normal/abnormal . [facility] CenterDcgxhjqTQSENUXIQW6314-85-31 19:10:00 Test Item Value Reference Range Interpretation Comments Basophils # (test code 0.1 See_Comment [Aut omated message] The = Basophils #) system which generated this result tra nsmitted reference range : <=0.2. The reference r jana was not used to int erpret this result as normal/abnormal . [facility] CenterImcqmtfHDGRGOBFGU1976-12-60 19:10:00 Test Item Value Reference Range Interpretation Comments Eosinophils # (test code 0.3 See_Comment [A utomated message] The = Eosinophils #) system whic h generated this result tra nsmitted reference range : <=0.5. The reference r jana was not used to int erpret this result as normal/abnormal . [facility] CenterWfnvvpjEBGRGGCCUE1404-47-22 19:10:00 Test Item Value Reference Range Interpretation Comments Segs (test code = Segs) 62.3 45.0-75.0 [facility] CenterEanwwcvTUTZUMINYT5894-82-68 10:58:00 Test Item Value Reference Range Interpretation Comments MCHC (test code = MCHC) 32.7 32.0-36.0 N [facility] CenterLptqdjfZJDSQVMHRR6593-47-42 10:58:00 Test Item Value Reference Range Interpretation Comments MPV (test code = MPV) 8.1 7.4-10.4 N [facility] CenterYpokpmdFAPQRNHLZN2626-85-20 10:58:00 Test Item Value Reference Range Interpretation Comments MCH (test code = MCH) 29.9 pg 27.0-31.0 N [facility] CenterGxwppttLNNARZBHWU6128-58-22 10:58:00 Test Item Value Reference Range Interpretation Comments RBC X 10x6 (test code = RBC X 10x6) 3.23 4.70-6.10 L [facility] CenterXozpultICNUZXRJCL6087-84-52 10:58:00 Test Item Value Reference Range Interpretation Comments MCV (test code = MCV) 91.3 80.0-94.0 N [facility] CenterLxksputZFXFMOFVMT7881-28-90 10:58:00 Test Item Value Reference Range Interpretation Comments Hgb (test code = Hgb) 9.6 14.0-18.0 L [facility] CenterJiusmegOBJFCYJXBW2699-39-28 10:58:00 Test Item Value Reference Range Interpretation Comments Hct (test code = Hct) 29.5 42.0-54.0 L [facility]WfgztybLKGEXDAUS6873-26-99 10:58:00 Test Item Value Reference Range Interpretation Comments Glucose Lvl (test code = Glucose Lvl) 89 70-99 N [facility] DallasSpiurtjWRSPQNJVJ2664-91-37 10:58:00 Test Item Value Reference Range Interpretation Comments BUN (test code = BUN) 15 7-22 N [facility] DallasJcxpmucKUFZZGTGY5227-94-82 10:58:00 Test Item Value Reference Range Interpretation Comments CO2 (test code = CO2) 28 24-32 N [facility] DallasVrbzjhaWZEAOMDDD9199-52-95 10:58:00 Test Item Value Reference Range Interpretation Comments eGFR (test code = eGFR) 101 [facility] DallasKajptfsLTJLPCIFQ8809-05-90 10:58:00 Test Item Value Reference Range Interpretation Comments Potassium Lvl (test code = Potassium 3.9 3.5-5.1 N Lvl) [facility] DallasGcimfoxRSWDYYQVV2299-67-72 10:58:00 Test Item Value Reference Range Interpretation Comments Sodium Lvl (test code = Sodium Lvl) 143 135-145 N [facility] DallasDzesostCQHTUCNGR8164-74-29 10:58:00 Test Item Value Reference Range Interpretation Comments Creatinine Lvl (test code = Creatinine 0.6 0.5-1.4 N Lvl) [facility] DallasYlppbndQMGDGBEWC3573-65-00 10:58:00 Test Item Value Reference Range Interpretation Comments Calcium Lvl (test code = Calcium Lvl) 8.1 8.5-10.5 L [facility] DallasNmxvoraKEWAWZDQP0341-92-87 10:58:00 Test Item Value Reference Range Interpretation Comments Chloride Lvl (test code = Chloride Lvl) 105 95-109 N [facility] DallasCktgorfMXHLLFHVH3652-52-18 10:58:00 Test Item Value Reference Range Interpretation Comments AGAP (test code = AGAP) 13.9 10.0-20.0 N [facility] CenterBkwhttwEKBLUFSAQG2449-05-38 10:58:00 Test Item Value Reference Range Interpretation Comments WBC X 10x3 (test code = WBC X 10x3) 14.1 3.7-10.4 H [facility] CenterDvgqhdqSVFEVYNQJC6946-57-90 10:58:00 Test Item Value Reference Range Interpretation Comments RDW (test code = RDW) 14.2 11.5-14.5 N [facility] CenterUmhookfVMPYZUMBQI1443-35-82 10:58:00 Test Item Value Reference Range Interpretation Comments Platelet (test code = Platelet) 324 133-450 N [facility] DallasRgbuucxLTTMTDQRY2930-48-50 10:33:14 Test Item Value Reference Range Interpretation Comments Ca Ion WB (test code = Ca Ion WB) 1.04 1.05-1.25 L [facility] DallasUiaxskbOXTEZHMVZ6023-12-88 10:33:14 Test Item Value Reference Range Interpretation Comments Ca Norm WB (test code = Ca Norm WB) 1.03 1.05-1.25 L [facility] DallasZiipfktXAFQVAIFE4657-33-38 10:33:00 Test Item Value Reference Range Interpretation Comments Phosphorus (test code = Phosphorus) 2.6 2.5-4.5 N [facility] DallasJuxfhvyMTVHCLLCN8086-54-91 10:33:00 Test Item Value Reference Range Interpretation Comments AGAP (test code = AGAP) 15.1 10.0-20.0 [facility] [facility] DallasTocftqvICDOUZVYD8750-82-42 10:33:00 Test Item Value Reference Range Interpretation Comments eGFR (test code = eGFR) 90 [facility] DallasQoxebbsSUBHTRCWG2462-05-19 10:33:00 Test Item Value Reference Range Interpretation Comments Calcium Lvl (test code = Calcium Lvl) 8.2 8.5-10.5 L [facility] DallasVxyocczERVHZUEKV4688-16-69 10:33:00 Test Item Value Reference Range Interpretation Comments CO2 (test code = CO2) 25 24-32 N [facility] DallasDntmeqqJOFFJDMHV0558-42-76 10:33:00 Test Item Value Reference Range Interpretation Comments Creatinine Lvl (test code = Creatinine 0.8 0.5-1.4 N Lvl) [facility] DallasUpijgccISVGCVITW5730-64-93 10:33:00 Test Item Value Reference Range Interpretation Comments Chloride Lvl (test code = Chloride Lvl) 106 95-109 N [facility] DallasWxaawhiCBEEHXZOZ1706-13-65 10:33:00 Test Item Value Reference Range Interpretation Comments Potassium Lvl (test code = Potassium 4.1 3.5-5.1 N Lvl) [facility] DallasCgezcmfIQRYQWZED7787-64-51 10:33:00 Test Item Value Reference Range Interpretation Comments Sodium Lvl (test code = Sodium Lvl) 142 135-145 N [facility] DallasHnmxlcaGPGJXTHBA4135-53-78 10:33:00 Test Item Value Reference Range Interpretation Comments BUN (test code = BUN) 22 7-22 N [facility] DallasAfqnidwELIBLBAZF0551-75-83 10:33:00 Test Item Value Reference Range Interpretation Comments Glucose Lvl (test code = Glucose Lvl) 96 70-99 N [facility] DallasEsgwscgJWSLCJEGF4440-17-82 10:33:00 Test Item Value Reference Range Interpretation Comments Magnesium Lvl (test code = Magnesium 2.2 1.8-2.4 N Lvl) [facility]UtoerptYSQXINYGAD2633-43-89 10:33:00 Test Item Value Reference Range Interpretation Comments RDW (test code = RDW) 14.9 11.5-14.5 H [facility] CenterVnzfadfJUZRAYVONL5711-19-10 10:33:00 Test Item Value Reference Range Interpretation Comments Platelet (test code = Platelet) 359 133-450 N [facility] CenterHnzpbjkLVIIQLTWFR6293-91-21 10:33:00 Test Item Value Reference Range Interpretation Comments MCHC (test code = MCHC) 32.6 32.0-36.0 N [facility] CenterFiwdgckLSGLOCGSHF1382-80-18 10:33:00 Test Item Value Reference Range Interpretation Comments MPV (test code = MPV) 8.4 7.4-10.4 N [facility] CenterQhwqvvuMRXQYXWRDJ2012-84-66 10:33:00 Test Item Value Reference Range Interpretation Comments Hgb (test code = Hgb) 11.2 14.0-18.0 L [facility] CenterFlhltyiEWMEZDDQMX0714-67-99 10:33:00 Test Item Value Reference Range Interpretation Comments Hct (test code = Hct) 34.2 42.0-54.0 L [facility] CenterJugtkolFFGXVWDTGQ2281-44-77 10:33:00 Test Item Value Reference Range Interpretation Comments RBC X 10x6 (test code = RBC X 10x6) 3.70 4.70-6.10 L [facility] CenterEdzxpdtNSBLBTUXAK0600-26-85 10:33:00 Test Item Value Reference Range Interpretation Comments MCV (test code = MCV) 92.6 80.0-94.0 N [facility] CenterJczophrEURPLKNFXV9550-32-39 10:33:00 Test Item Value Reference Range Interpretation Comments MCH (test code = MCH) 30.2 pg 27.0-31.0 N [facility] CenterDmokuafYCLFFWKBTJ4571-44-97 10:33:00 Test Item Value Reference Range Interpretation Comments WBC X 10x3 (test code = WBC X 10x3) 18.0 3.7-10.4 H [facility] CenterSdghqpyKLQWANFVDL9495-72-62 10:33:00 Test Item Value Reference Range Interpretation Comments Lymphocytes (test code = Lymphocytes) 15.2 20.0-40.0 L [facility] CenterQmshoylLMCHHNRRLE3634-82-34 10:33:00 Test Item Value Reference Range Interpretation Comments Segs (test code = Segs) 75.6 45.0-75.0 H [facility] CenterIcgjaxpASCRTBHOVN5583-52-57 10:33:00 Test Item Value Reference Range Interpretation Comments Eosinophils (test code = 0.8 See_Comment N [A utomated message] The Eosinophils) system which ge nerated this result tra nsmitted reference range : <=4.0. The reference r jana was not used to int erpret this result as normal/abnormal . [facility] CenterReehomsWLDZCSZLXH0716-62-17 10:33:00 Test Item Value Reference Range Interpretation Comments Monocytes (test code = Monocytes) 8.2 2.0-12.0 N [facility] CenterXxszcpdZOUADASZOV7601-05-68 10:33:00 Test Item Value Reference Range Interpretation Comments Eosinophils # (test code 0.1 See_Comment N [A utomated message] The = Eosinophils #) system whic h generated this result tra nsmitted reference range : <=0.5. The reference r jana was not used to int erpret this result as normal/abnormal . [facility] CenterSlbqbzqMHFNCCUHWZ2561-08-44 10:33:00 Test Item Value Reference Range Interpretation Comments Monocytes # (test code 1.5 See_Comment H [Aut omated message] The = Monocytes #) system which generated this result tra nsmitted reference range : <=0.8. The reference r jana was not used to int erpret this result as normal/abnormal . [facility] CenterXwvucwoWQRXZPBNOG5055-13-65 10:33:00 Test Item Value Reference Range Interpretation Comments Segs-Bands # (test code = Segs-Bands #) 13.6 1.5-8.1 H [facility] CenterFhgadimRUZIMQRJJV2549-83-41 10:33:00 Test Item Value Reference Range Interpretation Comments Lymphocytes # (test code = Lymphocytes 2.7 1.0-5.5 N #) [facility] CenterUiwlkjtRZZYKSJRQJ9711-73-57 10:33:00 Test Item Value Reference Range Interpretation Comments Basophils (test code = 0.2 See_Comment N [Aut omated message] The Basophils) system which ge nerated this result tra nsmitted reference range : <=1.0. The reference r jana was not used to int erpret this result as normal/abnormal . [facility] GLUCOSE CZGFDJO4677-19-70 16:54:00 Test Item Value Reference Range Interpretation Comments Glucose POC (test code = Glucose POC) 64 70-99 L [facility] GLUCOSE BNTDNYH7581-23-11 12:48:00 Test Item Value Reference Range Interpretation Comments Glucose POC (test code = Glucose POC) 134 70-99 H [facility] DallasUaapqcuLTOUJEIUK6969-40-65 05:03:00 Test Item Value Reference Range Interpretation Comments POC A Glu (test code = POC A Glu) 129 70-99 H [facility] DallasTpejkdnPTCSMWNHQ8973-70-78 05:03:00 Test Item Value Reference Range Interpretation Comments POC A K (test code = POC A K) 3.9 3.5-5.1 N [facility] DallasBrpieyfNNQHJXIDB2959-47-61 05:03:00 Test Item Value Reference Range Interpretation Comments POC A Ca Ion (test code = POC A Ca Ion) 1.11 1.05-1.25 N [facility] DallasWrelwevVZXPONMID3381-18-71 05:03:00 Test Item Value Reference Range Interpretation Comments POC A LA (test code = POC A LA) 1.0 0.5-2.2 N [facility] DallasWccstjxJWIHVZIUM9262-83-47 05:03:00 Test Item Value Reference Range Interpretation Comments POC A O2 Sat (test code = POC A O2 Sat) 98.0 95.0-100.0 N [facility] DallasNfiauidKDRJLRXMG8660-70-96 05:03:00 Test Item Value Reference Range Interpretation Comments POC A Na (test code = POC A Na) 133 135-145 L [facility] DallasDhtewhwTJETAAUSV4317-03-99 05:03:00 Test Item Value Reference Range Interpretation Comments POC A Hct (test code = POC A Hct) 30.0 42.0-54.0 L [facility] DallasFuqmbntWWECEEQIT4081-59-80 05:03:00 Test Item Value Reference Range Interpretation Comments POC A pH (test code = POC A pH) 7.49 7.35-7.45 H [facility] DallasZitvyqoLWEXEDVJV8007-51-21 05:03:00 Test Item Value Reference Range Interpretation Comments POC A Temp (test code = POC A Temp) 37.0 [facility] DallasIxlgygzEATBQZBPA1777-89-32 05:03:00 Test Item Value Reference Range Interpretation Comments POC A Source (test code = POC A Source) ART [facility] DallasSwuuztkJEEMYVMGL8741-64-14 05:03:00 Test Item Value Reference Range Interpretation Comments POC A PO2 (test code = POC A PO2) 92 80-100 N [facility] DallasSgsmhpxKZHVZOLHM0841-73-03 05:03:00 Test Item Value Reference Range Interpretation Comments POC A BE (test code = 1 See_Comment N [Auto mated message] The POC A BE) system which ge nerated this result transmit isha reference range : <=2. The reference range was not used to interpr et this result as lorrie l/abnormal. [facility] DallasUzxfeevEQDJFOAGK1765-25-09 05:03:00 Test Item Value Reference Range Interpretation Comments POC A PCO2 (test code = POC A PCO2) 32 35-45 L [facility] DallasXbougkgPYDSXWZAY5165-49-86 05:03:00 Test Item Value Reference Range Interpretation Comments POC A HCO3 (test code = POC A HCO3) 24 22-26 N [facility] DallasZzqlmeaXBYSEFOLT7701-45-78 05:01:00 Test Item Value Reference Range Interpretation Comments Ca Ion WB (test code = Ca Ion WB) 1.07 1.05-1.25 N [facility] DallasCptnkxxCUXLAOJFO2474-33-20 05:01:00 Test Item Value Reference Range Interpretation Comments Ca Norm WB (test code = Ca Norm WB) 1.04 1.05-1.25 L [facility] DallasYxtedjwFMMFLCRJC3532-86-74 05:01:00 Test Item Value Reference Range Interpretation Comments eGFR (test code = eGFR) 101 [facility] DallasEwtowucNOLGJKETQ7222-59-53 05:01:00 Test Item Value Reference Range Interpretation Comments Chloride Lvl (test code = Chloride Lvl) 104 95-109 N [facility] DallasJbawxezRTAUXSLCP3110-31-71 05:01:00 Test Item Value Reference Range Interpretation Comments Creatinine Lvl (test code = Creatinine 0.6 0.5-1.4 N Lvl) [facility] DallasDvpvheqRCERPBYAF4316-76-37 05:01:00 Test Item Value Reference Range Interpretation Comments Sodium Lvl (test code = Sodium Lvl) 139 135-145 N [facility] DallasQpiyofkQPRTPCXAN9645-20-10 05:01:00 Test Item Value Reference Range Interpretation Comments AGAP (test code = AGAP) 15.2 10.0-20.0 N [facility] DallasKwophouMBPVOQEGP2489-44-02 05:01:00 Test Item Value Reference Range Interpretation Comments Calcium Lvl (test code = Calcium Lvl) 7.6 8.5-10.5 L [facility] DallasKgoteqfEBALQIHHT7785-51-78 05:01:00 Test Item Value Reference Range Interpretation Comments CO2 (test code = CO2) 24 24-32 N [facility] DallasLjemhmhMEOYARVVO1839-56-05 05:01:00 Test Item Value Reference Range Interpretation Comments Potassium Lvl (test code = Potassium 4.2 3.5-5.1 N Lvl) [facility] DallasCzktbvpHKYZNVHYV8608-12-74 05:01:00 Test Item Value Reference Range Interpretation Comments Glucose Lvl (test code = Glucose Lvl) 116 70-99 H [facility] DallasXmuukynXGWRXUAOE1614-90-84 05:01:00 Test Item Value Reference Range Interpretation Comments BUN (test code = BUN) 19 7-22 N [facility] CenterZpccvvxLUSNLWYCUJ7533-25-26 05:01:00 Test Item Value Reference Range Interpretation Comments RDW (test code = RDW) 14.4 11.5-14.5 N [facility] CenterWhefrlbSACBMHRJNL3714-18-54 05:01:00 Test Item Value Reference Range Interpretation Comments MCHC (test code = MCHC) 33.4 32.0-36.0 N [facility] CenterHvfzhtaBYGQSLNQAC4692-07-98 05:01:00 Test Item Value Reference Range Interpretation Comments MPV (test code = MPV) 8.7 7.4-10.4 N [facility] CenterHaxacpuGVRVUEOHPZ1636-82-27 05:01:00 Test Item Value Reference Range Interpretation Comments Platelet (test code = Platelet) 250 133-450 N [facility] CenterDamflpmWNQHBXKBKK4717-91-86 05:01:00 Test Item Value Reference Range Interpretation Comments WBC X 10x3 (test code = WBC X 10x3) 20.4 3.7-10.4 H [facility] CenterFpibsnzGCRFVYYJRC6977-92-71 05:01:00 Test Item Value Reference Range Interpretation Comments RBC X 10x6 (test code = RBC X 10x6) 3.08 4.70-6.10 L [facility] CenterYjdmzpbVPZLPSFFPQ2252-06-91 05:01:00 Test Item Value Reference Range Interpretation Comments MCV (test code = MCV) 91.5 80.0-94.0 N [facility] CenterCtycdmcKPEDWRFIGE8748-55-50 05:01:00 Test Item Value Reference Range Interpretation Comments Hct (test code = Hct) 28.2 42.0-54.0 L [facility] CenterDgpxbxnUELSVSVOET8041-55-37 05:01:00 Test Item Value Reference Range Interpretation Comments Hgb (test code = Hgb) 9.4 14.0-18.0 L [facility] CenterDsoudgtZCAFCTHOQU2611-62-25 05:01:00 Test Item Value Reference Range Interpretation Comments MCH (test code = MCH) 30.6 pg 27.0-31.0 N [facility] CenterFkdgimzFRAVCGJYYQ3611-07-08 05:01:00 Test Item Value Reference Range Interpretation Comments Monocytes # (test code 1.3 See_Comment H [Aut omated message] The = Monocytes #) system which generated this result tra nsmitted reference range : <=0.8. The reference r jana was not used to int erpret this result as normal/abnormal . [facility] CenterLuexwywKIXELCEJON4963-26-62 05:01:00 Test Item Value Reference Range Interpretation Comments Segs (test code = Segs) 89.1 45.0-75.0 H [facility] CenterRodrvjqUDVQTFKXKQ1001-15-62 05:01:00 Test Item Value Reference Range Interpretation Comments Lymphocytes (test code = Lymphocytes) 4.4 20.0-40.0 L [facility] CenterRxpubkdLOJJKBAPQQ8905-80-41 05:01:00 Test Item Value Reference Range Interpretation Comments Lymphocytes # (test code = Lymphocytes 0.9 1.0-5.5 L #) [facility] CenterNwpfnbsWPEZGTETBA9572-28-45 05:01:00 Test Item Value Reference Range Interpretation Comments Basophils (test code = 0.2 See_Comment N [Aut omated message] The Basophils) system which ge nerated this result tra nsmitted reference range : <=1.0. The reference r jana was not used to int erpret this result as normal/abnormal . [facility] CenterNyrhpboOMZFDDASEV8507-73-99 05:01:00 Test Item Value Reference Range Interpretation Comments Segs-Bands # (test code = Segs-Bands #) 18.2 1.5-8.1 H [facility] CenterIudkkihNNPFFBTLUY2285-05-25 05:01:00 Test Item Value Reference Range Interpretation Comments Monocytes (test code = Monocytes) 6.2 2.0-12.0 N [facility] CenterOuauotsCNYFSWKTWP9135-81-38 05:01:00 Test Item Value Reference Range Interpretation Comments Eosinophils (test code = 0.1 See_Comment N [A utomated message] The Eosinophils) system which ge nerated this result tra nsmitted reference range : <=4.0. The reference r jana was not used to int erpret this result as normal/abnormal . [facility] GLUCOSE AKSDZOP5602-95-78 01:46:00 Test Item Value Reference Range Interpretation Comments Gluc POC Comment 1 (test code = Notify RN/MD Gluc POC Comment 1) [facility] GLUCOSE LOZQLDP3066-96-96 01:46:00 Test Item Value Reference Range Interpretation Comments Glucose POC (test code = Glucose POC) 220 70-99 H [facility] GLUCOSE ULVLKTF9522-02-75 16:49:00 Test Item Value Reference Range Interpretation Comments Gluc POC Comment 1 (test code = Notify RN/MD Gluc POC Comment 1) [facility] GLUCOSE ORXAKMS6306-61-83 12:34:00 Test Item Value Reference Range Interpretation Comments Gluc POC Comment 1 (test code = Notify RN/MD Gluc POC Comment 1) [facility] CenterTyimwamQZKZCVSQSK7835-29-77 06:07:08 Test Item Value Reference Range Interpretation Comments G-value (test code = G-value) 13.4 5.0-11.6 H [facility] CenterRrlvltrQGDLWQXMVW4008-91-08 06:07:08 Test Item Value Reference Range Interpretation Comments Estimated % Lysis (test 0.0 See_Comment N [Au tomated message] The code = Estimated % system wh ich generated Lysis) this result tra nsmitted reference range : <=7.5. The reference r jana was not used to int erpret this result as normal/abnormal . [facility] CenterKwckxprLLREJVCNBM1158-57-53 06:07:08 Test Item Value Reference Range Interpretation Comments Angle (test code = Angle) 80 degrees 64-80 N [facility] CenterFdlltcsQDOWKESNBH8317-63-81 06:07:08 Test Item Value Reference Range Interpretation Comments Max Amp (test code = Max Amp) 73 mm 52-71 H [facility] CenterCdbrmkxJLGGHNGRZR4113-98-48 06:07:08 Test Item Value Reference Range Interpretation Comments K-time (test code = K-time) 0.8 min 0.6-2.3 N [facility] CenterTgzraaiWPKCCJQFCA3471-20-51 06:07:08 Test Item Value Reference Range Interpretation Comments ACT (TEG) (test code = ACT (TEG)) 105 s 86-118 N [facility] CenterAmgwhpbASOTIPSXGA3856-03-31 06:07:08 Test Item Value Reference Range Interpretation Comments R-time (test code = R-time) 0.6 min 0.4-0.7 N [facility] CenterXkqpksqOAMEJJYLRB4544-43-78 06:07:08 Test Item Value Reference Range Interpretation Comments Split Point (test code = Split Point) 0.5 min [facility] CenterJwnmuroIUEAQPVBXQ4493-32-70 06:07:08 Test Item Value Reference Range Interpretation Comments Rapid TEG Sample Type Citrated Whole Blood (test code = Rapid TEG Sample Type) [facility] CenterQyvuxgvWSWZPDHPPM1085-62-03 06:07:00 Test Item Value Reference Range Interpretation Comments Monocytes (test code = Monocytes) 10.9 2.0-12.0 N [facility] CenterHfiwgrxGOGXLEFVWW2259-34-46 06:07:00 Test Item Value Reference Range Interpretation Comments Monocytes # (test code 1.8 See_Comment H [Aut omated message] The = Monocytes #) system which generated this result tra nsmitted reference range : <=0.8. The reference r jana was not used to int erpret this result as normal/abnormal . [facility] CenterIovkghoNPMUGUMQLL1875-33-66 06:07:00 Test Item Value Reference Range Interpretation Comments Lymphocytes # (test code = Lymphocytes 0.7 1.0-5.5 L #) [facility] CenterCpmxxyiVFTXUYPPFT4677-78-58 06:07:00 Test Item Value Reference Range Interpretation Comments Segs-Bands # (test code = Segs-Bands #) 14.3 1.5-8.1 H [facility] CenterQjmbcuqEHWHVOPGXH9264-53-11 06:07:00 Test Item Value Reference Range Interpretation Comments Lymphocytes (test code = Lymphocytes) 4.3 20.0-40.0 L [facility] CenterJrlcejlMILFLYPQDN0314-52-41 06:07:00 Test Item Value Reference Range Interpretation Comments Segs (test code = Segs) 84.8 45.0-75.0 H [facility] DallasTreuwfvZISZNBXGK9544-11-06 22:06:00 Test Item Value Reference Range Interpretation Comments POC V HCO3 (test code = POC V HCO3) 25 22-26 N [facility] DallasDmmpknoVAACTHWGS6726-35-79 22:06:00 Test Item Value Reference Range Interpretation Comments POC V pH (test code = POC V pH) 7.45 7.28-7.42 H [facility] DallasWxmlwuyFJQPSQFLJ7494-65-29 22:06:00 Test Item Value Reference Range Interpretation Comments POC V Glu (test code = POC V Glu) 147 70-99 H [facility] DallasVnokqsnFQRESPITC2337-89-12 22:06:00 Test Item Value Reference Range Interpretation Comments POC V O2 Sat (test code = POC V O2 Sat) 100.0 40.0-70.0 H [facility] DallasLkoqkjnCWINGATDY9188-19-35 22:06:00 Test Item Value Reference Range Interpretation Comments POC V BE (test code = 1 See_Comment N [Auto mated message] The POC V BE) system which ge nerated this result transmit isha reference range : <=2. The reference range was not used to interpr et this result as lorrie l/abnormal. [facility] DallasJprpjyhZHTNMIVWX5263-92-74 22:06:00 Test Item Value Reference Range Interpretation Comments POC V PCO2 (test code = POC V PCO2) 36 38-52 L [facility] DallasLrhsgxzVZBCARNXB5423-63-09 22:06:00 Test Item Value Reference Range Interpretation Comments POC V PO2 (test code = POC V PO2) 228 20-49 H [facility] DallasKtkzzbgGADEMMIGK2676-04-99 22:06:00 Test Item Value Reference Range Interpretation Comments POC V K (test code = POC V K) 4.2 3.5-5.1 N [facility] DallasTchjzkkTIRSFKGKK3703-29-42 22:06:00 Test Item Value Reference Range Interpretation Comments POC V Na (test code = POC V Na) 133 135-145 L [facility] DallasUcjlcbkVAEWRPVOI5983-35-54 22:06:00 Test Item Value Reference Range Interpretation Comments POC V LA (test code = POC V LA) 1.2 0.5-2.2 N [facility] DallasNcnwscsUUDFGGSRQ8240-70-12 22:06:00 Test Item Value Reference Range Interpretation Comments POC V Ion Ca (test code = POC V Ion Ca) 1.09 1.05-1.25 N [facility] DallasQhvbwtySTCTANUJR5191-31-58 22:06:00 Test Item Value Reference Range Interpretation Comments POC V Hct (test code = POC V Hct) 34.0 42.0-54.0 L [facility] DallasKbpnoacUCWKHIJLY5315-08-19 22:06:00 Test Item Value Reference Range Interpretation Comments POC V Temp (test code = POC V Temp) 37.0 [facility] DallasKbqmjyoKJKAZYHBL1053-76-92 22:06:00 Test Item Value Reference Range Interpretation Comments POC V Source (test code = POC V Source) DAT [facility] DallasLkzqcnnRKNYUGUCJ0901-39-16 21:52:58 Test Item Value Reference Range Interpretation Comments Magnesium Lvl (test code = Magnesium 1.9 1.8-2.4 N Lvl) [facility] DallasBjzjberSNPVKOLYL0090-12-03 21:52:58 Test Item Value Reference Range Interpretation Comments Phosphorus (test code = Phosphorus) 3.0 2.5-4.5 N [facility] CenterRloaumbPEFKHWPKCF1238-85-41 21:52:14 Test Item Value Reference Range Interpretation Comments INR (test code = INR) 0.98 0.85-1.17 N [facility] CenterNsunesoDHWBBOIWPB9668-39-22 21:52:14 Test Item Value Reference Range Interpretation Comments aPTT (test code = aPTT) 29.0 s 22.9-35.8 N [facility] CenterCezfmaiFWGRRCKBWR3354-51-93 21:52:14 Test Item Value Reference Range Interpretation Comments PROTIME (test code = PROTIME) 12.9 s 12.0-14.7 N [facility] CenterVuygynfAJVGDMOBLJ1726-66-62 21:52:14 Test Item Value Reference Range Interpretation Comments Angle (test code = Angle) 79 degrees 64-80 N [facility] CenterPcyjvvmJPYRNUJYJA1378-25-21 21:52:14 Test Item Value Reference Range Interpretation Comments K-time (test code = K-time) 0.8 min 0.6-2.3 N [facility] CenterPisaywcARXZGSKLQO7386-39-37 21:52:14 Test Item Value Reference Range Interpretation Comments R-time (test code = R-time) 0.6 min 0.4-0.7 N [facility] CenterQpgzvopZPBLHPFUJZ7530-64-28 21:52:14 Test Item Value Reference Range Interpretation Comments Split Point (test code = Split Point) 0.5 min [facility] CenterMkeebdsDJYFRZHEMH2507-55-02 21:52:14 Test Item Value Reference Range Interpretation Comments G-value (test code = G-value) 12.6 5.0-11.6 H [facility] CenterBqszgppJIAKHEQNHO4424-81-26 21:52:14 Test Item Value Reference Range Interpretation Comments Max Amp (test code = Max Amp) 72 mm 52-71 H [facility] CenterUlqeeorDTQHWDTILB2997-47-44 21:52:14 Test Item Value Reference Range Interpretation Comments ACT (TEG) (test code = ACT (TEG)) 105 s 86-118 N [facility] CenterOrjzfphMGICTXYOSE9459-08-09 21:52:14 Test Item Value Reference Range Interpretation Comments Rapid TEG Sample Type Citrated Whole Blood (test code = Rapid TEG Sample Type) [facility] CenterNehcwzsPBOCDVTERL0711-67-69 21:52:14 Test Item Value Reference Range Interpretation Comments Estimated % Lysis (test 0.0 See_Comment N [Au tomated message] The code = Estimated % system wh ich generated Lysis) this result tra nsmitted reference range : <=7.5. The reference r jana was not used to int erpret this result as normal/abnormal . [facility] CenterEzumvxaEODAZBRLAE8501-93-58 21:52:12 Test Item Value Reference Range Interpretation Comments Eosinophils (test code = 0.1 See_Comment N [A utomated message] The Eosinophils) system which ge nerated this result tra nsmitted reference range : <=4.0. The reference r jana was not used to int erpret this result as normal/abnormal . [facility]DjujcplGAIWWLCHBD6549-44-51 21:52:12 Test Item Value Reference Range Interpretation Comments Basophils (test code = 0.1 See_Comment N [Aut omated message] The Basophils) system which ge nerated this result tra nsmitted reference range : <=1.0. The reference r jana was not used to int erpret this result as normal/abnormal . [facility]EkvpqklSSDGFKWUO8745-16-82 21:52:00 Test Item Value Reference Range Interpretation Comments Ca Ion WB (test code = Ca Ion WB) 1.05 1.05-1.25 N [facility]RhuihrpPNKBCMMWW8932-81-12 21:52:00 Test Item Value Reference Range Interpretation Comments Ca Norm WB (test code = Ca Norm WB) 1.03 1.05-1.25 L [facility] DallasUudfkyoPBGGBBFNN4562-42-69 18:18:00 Test Item Value Reference Range Interpretation Comments POC V PO2 (test code = POC V PO2) 44 20-49 N [facility] DallasPevbouhANVULVFUJ7269-49-30 18:18:00 Test Item Value Reference Range Interpretation Comments POC V PCO2 (test code = POC V PCO2) 43 38-52 N [facility] DallasYzufzebMCDRLFDCQ9214-06-60 18:18:00 Test Item Value Reference Range Interpretation Comments POC V BE (test code = 2 See_Comment N [Auto mated message] The POC V BE) system which ge nerated this result transmit isha reference range : <=2. The reference range was not used to interpr et this result as lorrie l/abnormal. [facility] DallasQybffsuKEHDVYDFO2396-07-53 18:18:00 Test Item Value Reference Range Interpretation Comments POC V HCO3 (test code = POC V HCO3) 27 22-26 H [facility] DallasHypyyxmOQDAEMETD2078-98-65 18:18:00 Test Item Value Reference Range Interpretation Comments POC V O2 Sat (test code = POC V O2 Sat) 80.0 40.0-70.0 H [facility] DallasDqlmyljBXFPDEDMD1966-80-72 18:18:00 Test Item Value Reference Range Interpretation Comments POC V Glu (test code = POC V Glu) 130 70-99 H [facility] DallasGpdzcgcBPVPQKZQI9836-96-32 18:18:00 Test Item Value Reference Range Interpretation Comments POC V Ion Ca (test code = POC V Ion Ca) 1.11 1.05-1.25 N [facility] DallasZkfewleVCYGWURII3822-55-15 18:18:00 Test Item Value Reference Range Interpretation Comments POC V Na (test code = POC V Na) 135 135-145 N [facility] DallasOnluhqtIJUCALCKC0830-25-79 18:18:00 Test Item Value Reference Range Interpretation Comments POC V K (test code = POC V K) 4.4 3.5-5.1 N [facility] DallasJoljnmiPVALQLBBJ6828-81-69 18:18:00 Test Item Value Reference Range Interpretation Comments POC V pH (test code = POC V pH) 7.40 7.28-7.42 N [facility] DallasWwptjizEVBQDNLJQ0300-44-07 18:18:00 Test Item Value Reference Range Interpretation Comments POC V LA (test code = POC V LA) 1.9 0.5-2.2 N [facility] DallasTuakagcCKBVRNDPP0727-44-93 18:18:00 Test Item Value Reference Range Interpretation Comments POC V Source (test code = POC V Source) DAT [facility] DallasFdovkvuNIZSJJVZS7695-74-27 18:18:00 Test Item Value Reference Range Interpretation Comments POC V Hct (test code = POC V Hct) 30.0 42.0-54.0 L [facility] DallasOdyojspVCEPCBOOM5153-93-03 18:18:00 Test Item Value Reference Range Interpretation Comments POC V Temp (test code = POC V Temp) 37.0 [facility] DallasRekkuaoZQLBWFWXD0656-36-98 15:13:00 Test Item Value Reference Range Interpretation Comments POC V Glu (test code = POC V Glu) 130 70-99 H [facility] DallasRjmtioqVBHZQVTWA8142-90-32 15:13:00 Test Item Value Reference Range Interpretation Comments POC V Na (test code = POC V Na) 133 135-145 L [facility] DallasLyrcyqtAZQJCQVLJ7145-50-36 15:13:00 Test Item Value Reference Range Interpretation Comments POC V HCO3 (test code = POC V HCO3) 27 22-26 H [facility] DallasCxvetzhGBIBTNYVZ3222-29-86 15:13:00 Test Item Value Reference Range Interpretation Comments POC V PO2 (test code = POC V PO2) 47 20-49 N [facility] DallasArflgnlPVDSTLSZQ9794-00-19 15:13:00 Test Item Value Reference Range Interpretation Comments POC V pH (test code = POC V pH) 7.38 7.28-7.42 N [facility] DallasKproaxtUWCKSBVHR8957-52-63 15:13:00 Test Item Value Reference Range Interpretation Comments POC V PCO2 (test code = POC V PCO2) 46 38-52 N [facility] DallasKvfqykuHTCBGJXHP3009-38-47 15:13:00 Test Item Value Reference Range Interpretation Comments POC V K (test code = POC V K) 4.2 3.5-5.1 N [facility] DallasPskttglSNKIEBLCP1488-98-18 15:13:00 Test Item Value Reference Range Interpretation Comments POC V Hct (test code = POC V Hct) 30.0 42.0-54.0 L [facility] DallasVdychqdIIBVHLWTN3568-99-80 15:13:00 Test Item Value Reference Range Interpretation Comments POC V Ion Ca (test code = POC V Ion Ca) 1.11 1.05-1.25 N [facility] DallasRqllpecKQGYBVPDT8572-23-43 15:13:00 Test Item Value Reference Range Interpretation Comments POC V LA (test code = POC V LA) 2.2 0.5-2.2 N [facility] DallasXmgpujhADTHEFPES7499-57-67 15:13:00 Test Item Value Reference Range Interpretation Comments POC V O2 Sat (test code = POC V O2 Sat) 82.0 40.0-70.0 H [facility] DallasCjyejphFQYAHUSIS8545-43-35 15:13:00 Test Item Value Reference Range Interpretation Comments POC V BE (test code = 2 See_Comment N [Auto mated message] The POC V BE) system which ge nerated this result transmit isha reference range : <=2. The reference range was not used to interpr et this result as lorrie l/abnormal. [facility] DallasBydtienZUOOCPROB8241-29-67 15:13:00 Test Item Value Reference Range Interpretation Comments POC V Source (test code = POC V Source) DAT [facility] DallasSsatqgaGTRTRRLUB7050-18-65 15:13:00 Test Item Value Reference Range Interpretation Comments POC V Temp (test code = POC V Temp) 37.0 [facility] DallasOenuosfMOVURNSAY2332-20-77 15:00:00 Test Item Value Reference Range Interpretation Comments POC A Ca Ion (test code = POC A Ca Ion) 1.12 1.05-1.25 N [facility] DallasUikhjzxLEFDSINBL7055-16-31 15:00:00 Test Item Value Reference Range Interpretation Comments POC A K (test code = POC A K) 4.6 3.5-5.1 N [facility] DallasVkrwvnsSCCXTOZPV8194-83-41 15:00:00 Test Item Value Reference Range Interpretation Comments POC A Na (test code = POC A Na) 134 135-145 L [facility] DallasWznfsggTFHODGNZZ5621-47-72 15:00:00 Test Item Value Reference Range Interpretation Comments POC A Hct (test code = POC A Hct) 32.0 42.0-54.0 L [facility] DallasQhkqlykKGTWOWRNM6490-30-69 15:00:00 Test Item Value Reference Range Interpretation Comments POC A LA (test code = POC A LA) 1.8 0.5-2.2 N [facility] DallasZqastuxFLAPOCWQN7629-18-30 15:00:00 Test Item Value Reference Range Interpretation Comments POC A Glu (test code = POC A Glu) 124 70-99 H [facility] DallasPmzovomEMDDYJOQZ6087-23-74 15:00:00 Test Item Value Reference Range Interpretation Comments POC A PCO2 (test code = POC A PCO2) 37 35-45 N [facility] DallasIxfsetyZKORUMSSK1144-68-26 15:00:00 Test Item Value Reference Range Interpretation Comments POC A PO2 (test code = POC A PO2) 131 80-100 H [facility] DallasGgasphlGRZNBRLVZ2901-11-51 15:00:00 Test Item Value Reference Range Interpretation Comments POC A pH (test code = POC A pH) 7.47 7.35-7.45 H [facility] DallasYgsoqshBFQARFTLX9477-21-42 15:00:00 Test Item Value Reference Range Interpretation Comments POC A Temp (test code = POC A Temp) 37.0 [facility] DallasEwzqyboDPQUCNZYZ0408-69-11 15:00:00 Test Item Value Reference Range Interpretation Comments POC A Source (test code = POC A Source) ART [facility] DallasHmlpelxBKOVBDPBX3481-09-10 15:00:00 Test Item Value Reference Range Interpretation Comments POC A O2 Sat (test code = POC A O2 Sat) 99.0 95.0-100.0 N [facility] DallasQbgzrtaXVKBKJZMF0454-53-50 15:00:00 Test Item Value Reference Range Interpretation Comments POC A BE (test code = 3 See_Comment H [Auto mated message] The POC A BE) system which ge nerated this result transmit isha reference range : <=2. The reference range was not used to interpr et this result as lorrie l/abnormal. [facility] DallasEgycxpjAPHMZOTCX5151-76-43 15:00:00 Test Item Value Reference Range Interpretation Comments POC A HCO3 (test code = POC A HCO3) 27 22-26 H [facility] CampusClip[facility] GKHLYLH5771-25-10 14:57:00 Test Item Value Reference Range Interpretation Comments RBC product (test code Product available N = RBC product) (06/01/2013 09:57:00) [facility] DallasPrwqpjkGDFTWGKQC7178-76-67 10:10:00 Test Item Value Reference Range Interpretation Comments Phosphorus (test code = Phosphorus) 3.4 2.5-4.5 N [facility] DallasIkbmehqUEAJAQUZD1996-33-18 10:10:00 Test Item Value Reference Range Interpretation Comments Magnesium Lvl (test code = Magnesium 2.0 1.8-2.4 N Lvl) [facility] CDDETKV3875-09-99 18:39:00 Test Item Value Reference Range Interpretation Comments ABO/Rh (test code = ABO/Rh) O POS [facility] CampusClip[facility] EKRVSEX0428-92-14 18:39:00 Test Item Value Reference Range Interpretation Comments Antibody Scrn (test Negative (05/31/2013 N code = Antibody Scrn) 13:39:00) [facility]ShcrlqpKJNJGURRZD6409-60-28 05:44:00 Test Item Value Reference Range Interpretation Comments NUCLEATED RBC'S (test code = NUCLEATED 2 RBC'S) [facility] CenterPpgjayrMAVULSZYCT1591-89-76 05:44:00 Test Item Value Reference Range Interpretation Comments Anisocyte (test code = 1+ *ABN*(05/29/2013 A Anisocyte) 00:44:00) [facility] CenterLceoidyJKQFZSINHO7406-40-69 05:44:00 Test Item Value Reference Range Interpretation Comments Plt Morph (test code = Normal (05/29/2013 N Plt Morph) 00:44:00) [facility] CenterUfijnqiLMBXAHOBJJ5147-92-25 05:44:00 Test Item Value Reference Range Interpretation Comments Polychrom (test code = Moderate A Polychrom) *ABN*(05/29/2013 00:44:00) [facility] CenterMvwncpmOIGSLUTDJY6113-85-09 05:44:00 Test Item Value Reference Range Interpretation Comments Hypochrom (test code = Slight (05/29/2013 N Hypochrom) 00:44:00) [facility] CenterVsarafbBKVEGZJFDS3793-12-98 05:44:00 Test Item Value Reference Range Interpretation Comments Eosinophils # (test code 0.1 See_Comment N [A utomated message] The = Eosinophils #) system whic h generated this result tra nsmitted reference range : <=0.5. The reference r jana was not used to int erpret this result as normal/abnormal . [facility] CenterJwzsbscUGQPVHDTJH8628-30-49 05:44:00 Test Item Value Reference Range Interpretation Comments Basophils # (test code 0.1 See_Comment N [Aut omated message] The = Basophils #) system which generated this result tra nsmitted reference range : <=0.2. The reference r jana was not used to int erpret this result as normal/abnormal . [facility] CenterEtvbzucHUQEMKTJKK2422-64-13 05:44:00 Test Item Value Reference Range Interpretation Comments Bands (test code = 0.0 See_Comment N [Automat ed message] The Bands) system which ge nerated this result transmit isha reference range : <=11.0. The reference r jana was not used to interpr et this result as lorrie l/abnormal. [facility] CenterSpghlvoBJKSINSTPA0311-40-13 05:44:00 Test Item Value Reference Range Interpretation Comments Atypical Lymphs (test code = Atypical 0.0 N Lymphs) [facility] CenterQmzlsssUJRRLJYUXR9120-09-93 06:00:00 Test Item Value Reference Range Interpretation Comments INR (test code = INR) 0.98 0.85-1.17 N [facility] CenterQzbihabUDUWBOHRKZ4506-87-51 06:00:00 Test Item Value Reference Range Interpretation Comments aPTT (test code = aPTT) 27.0 s 22.9-35.8 N [facility] CenterRhrxqkyMZKMHZXEFW5728-62-84 06:00:00 Test Item Value Reference Range Interpretation Comments PROTIME (test code = PROTIME) 12.9 s 12.0-14.7 N [facility] CenterAnklnnnTZOMKZGQHT1032-66-92 06:00:00 Test Item Value Reference Range Interpretation Comments Polychrom (test code = Slight (05/28/2013 N Polychrom) 01:00:00) [facility] CenterUptjfasFEMIJVPFTR0950-40-75 06:00:00 Test Item Value Reference Range Interpretation Comments Rouleaux (test code = Present A Rouleaux) *ABN*(05/28/2013 01:00:00) [facility] CenterHqlmbuuOBVUHRHHKI2765-39-01 06:00:00 Test Item Value Reference Range Interpretation Comments Hypochrom (test code = Slight (05/28/2013 N Hypochrom) 01:00:00) [facility] CenterFgenpzdINTBUKJKRI5436-86-71 06:00:00 Test Item Value Reference Range Interpretation Comments Plt Morph (test code = Normal (05/28/2013 N Plt Morph) 01:00:00) [facility] DallasSwxwwwdOGCXAKKLW4665-46-38 14:25:00 Test Item Value Reference Range Interpretation Comments Troponin-I (test code 0.04 See_Comment N [Auto mated message] The = Troponin-I) system which g enerated this result transmit isha reference range : <=0.40. The reference r jana was not used to interpr et this result as lorrie l/abnormal. [facility] DallasCqbfinvPNDLLBOWB5021-89-76 14:25:00 Test Item Value Reference Range Interpretation Comments CK MB (test code = CK MB) 2.0 0.5-3.6 N [facility] DallasOjajfdmKMCUGDHNJ6515-02-49 14:25:00 Test Item Value Reference Range Interpretation Comments CK-MB INDEX (test 0.1 See_Comment N [Automate d message] The code = CK-MB INDEX) system w [facility] generated this result transmit isha reference range : <=2.5. The reference range was not used to interpr et this result as lorrie l/abnormal. [facility] DallasPjifnbiZYYZJVUAR0963-83-35 14:25:00 Test Item Value Reference Range Interpretation Comments Myoglobin (test code = Myoglobin) 91 25-72 H [facility] DallasAikmrdtXYKSMUXAU2368-69-08 14:25:00 Test Item Value Reference Range Interpretation Comments Troponin-T (test code no gt See_Comment N [Auto mated message] The = Troponin-T) system which g enerated this result transmit isha reference range : <=0.100. The reference r jana was not used to interpr et this result as lorrie l/abnormal. [facility] DallasAxnmgavJQWFXDTRF5498-69-78 14:25:00 Test Item Value Reference Range Interpretation Comments Total CK (test code = Total CK) 1340 12-191 H [facility] CenterJiihivnGICMVACDUL9781-00-72 05:18:00 Test Item Value Reference Range Interpretation Comments Basophils # (test code 0.1 See_Comment N [Aut omated message] The = Basophils #) system which generated this result tra nsmitted reference range : <=0.2. The reference r jana was not used to int erpret this result as normal/abnormal . [facility]QdzlvhiNPXZDMZODS3986-96-80 05:18:00 Test Item Value Reference Range Interpretation Comments Prealbumin (test code = Prealbumin) 20.3 18.0-45.0 N [facility] HospitalVestkzgTGULSUACFD1990-48-50 05:18:00 Test Item Value Reference Range Interpretation Comments CRP, High Sensitivity (test code = CRP, 67.2 High Sensitivity) [facility] DallasVxaszquTZGAEMHFN7165-70-33 21:46:00 Test Item Value Reference Range Interpretation Comments Troponin-T (test code no gt See_Comment N [Auto mated message] The = Troponin-T) system which g enerated this result transmit isha reference range : <=0.100. The reference r jana was not used to interpr et this result as lorrie l/abnormal. [facility] DallasShpxaepALCAFZNXT4335-96-17 21:46:00 Test Item Value Reference Range Interpretation Comments Troponin-I (test code 0.05 See_Comment N [Auto mated message] The = Troponin-I) system which g enerated this result transmit isha reference range : <=0.40. The reference r jana was not used to interpr et this result as lorrie l/abnormal. [facility] DallasHmvnqukUCOQLCMVJ6680-95-36 16:37:00 Test Item Value Reference Range Interpretation Comments POC A O2 Sat (test code = POC A O2 Sat) 100.0 95.0-100.0 N [facility] DallasCvfwrtvVJRHKJPSW1234-61-69 16:37:00 Test Item Value Reference Range Interpretation Comments POC A Na (test code = POC A Na) 135 135-145 N [facility] DallasGprsimbOEYRCOJPA3549-74-39 16:37:00 Test Item Value Reference Range Interpretation Comments POC A Ca Ion (test code = POC A Ca Ion) 1.04 1.05-1.25 L [facility] DallasKpvsinvYJXIVJTQF5608-38-46 16:37:00 Test Item Value Reference Range Interpretation Comments POC A K (test code = POC A K) 3.6 3.5-5.1 N [facility] DallasGnecvpuDVCJMIOMG9920-59-53 16:37:00 Test Item Value Reference Range Interpretation Comments POC A Glu (test code = POC A Glu) 112 70-99 H [facility] DallasUctgnjfHSCMFWXGU4975-05-28 16:37:00 Test Item Value Reference Range Interpretation Comments POC A LA (test code = POC A LA) 1.0 0.5-2.2 N [facility] DallasCrpqeciBKKQBPNHY1894-29-12 16:37:00 Test Item Value Reference Range Interpretation Comments POC A BE (test code = 4 See_Comment H [Auto mated message] The POC A BE) system which ge nerated this result transmit isha reference range : <=2. The reference range was not used to interpr et this result as lorrie l/abnormal. [facility] DallasJwnucadGTLJVDQAH2508-82-77 16:37:00 Test Item Value Reference Range Interpretation Comments POC A HCO3 (test code = POC A HCO3) 29 22-26 H [facility] DallasNfjzxooKNDXBCRTV4993-90-37 16:37:00 Test Item Value Reference Range Interpretation Comments POC A Source (test code = POC A Source) ART [facility] DallasMscotdcDCCCZSEHH6973-81-70 16:37:00 Test Item Value Reference Range Interpretation Comments POC A PCO2 (test code = POC A PCO2) 43 35-45 N [facility] DallasQohvjrvZXPXPDCYA6176-38-89 16:37:00 Test Item Value Reference Range Interpretation Comments POC A Temp (test code = POC A Temp) 37.0 [facility] DallasOmyoqhsUCDTWAMAU2165-73-45 16:37:00 Test Item Value Reference Range Interpretation Comments POC A PO2 (test code = POC A PO2) 171 80-100 H [facility] DallasRekyxlxQSMOSQZDL6062-41-85 16:37:00 Test Item Value Reference Range Interpretation Comments POC A pH (test code = POC A pH) 7.43 7.35-7.45 N [facility] PasoNolbgltCCKGDKNLJ7102-87-04 05:35:00 Test Item Value Reference Range Interpretation Comments U Myoglobin (test code no gt See_Comment N [Aut omated message] The = U Myoglobin) system which generated this result tra nsmitted reference range : <=30. The reference r jana was not used to int erpret this result as normal/abnormal . [facility] PasoSyrtserNEBMTJXUP2794-33-91 05:28:00 Test Item Value Reference Range Interpretation Comments Total CK (test code = Total CK) 899 12-191 H [facility] CenterJllrgygICYFYAMFE3502-32-80 05:28:00 Test Item Value Reference Range Interpretation Comments Troponin-I (test code 0.03 See_Comment N [Auto mated message] The = Troponin-I) system which g enerated this result transmit isha reference range : <=0.40. The reference r jana was not used to interpr et this result as lorrie l/abnormal. [facility] PasoIiahgkoRHBLDJFXC7402-75-19 05:28:00 Test Item Value Reference Range Interpretation Comments Troponin-T (test code no gt See_Comment N [Auto mated message] The = Troponin-T) system which g enerated this result transmit isha reference range : <=0.100. The reference r jana was not used to interpr et this result as lorrie l/abnormal. [facility] CenterNeghqazKPUQDAEIO1144-99-31 05:28:00 Test Item Value Reference Range Interpretation Comments CK-MB INDEX (test 0.3 See_Comment N [Automate d message] The code = CK-MB INDEX) system w [facility] generated this result transmit isha reference range : <=2.5. The reference range was not used to interpr et this result as lorrie l/abnormal. [facility] CenterYvspxehZEDEWUWJA6280-98-17 05:28:00 Test Item Value Reference Range Interpretation Comments CK MB (test code = CK MB) 2.4 0.5-3.6 N [facility] CenterBACTERIAL - ODIEMCVO7913-08-74 02:33:00 Test Item Value Reference Range Interpretation Comments MRSA by PCR (test code = MRSA Indeterminate by PCR) [facility] DallasQasbuebCSLIBXFQN2747-90-24 02:33:00 Test Item Value Reference Range Interpretation Comments Lactic Acid Lvl (test code = Lactic 1.7 0.5-2.2 N Acid Lvl) [facility] DallasBnjivnqWYSSUSPBC7533-21-21 00:30:22 Test Item Value Reference Range Interpretation Comments pH Art (test code = pH Art) 7.39 7.35-7.45 N [facility] DallasPnnguzxXWGTDUAJD2492-90-23 00:30:22 Test Item Value Reference Range Interpretation Comments pCO2 Art (test code = pCO2 Art) 41 35-45 N [facility] DallasQmiqoglADGXEKWVC3706-84-07 00:30:22 Test Item Value Reference Range Interpretation Comments pO2 Art (test code = pO2 Art) 201 80-100 H [facility] DallasZaaclwmUOMICPGWK6450-47-92 00:30:22 Test Item Value Reference Range Interpretation Comments HCO3 Art (test code = HCO3 Art) 25 22-26 N [facility] DallasLzcszwjVVXLVLRJT3053-88-98 00:30:22 Test Item Value Reference Range Interpretation Comments BE Art (test code = 0 See_Comment N [Automa isha message] The BE Art) system which ge nerated this result transmit isha reference range : <=2. The reference range was not used to interpr et this result as lorrie l/abnormal. [facility] DallasWmqhddkGWVJSGTNG6159-48-92 00:30:22 Test Item Value Reference Range Interpretation Comments O2 Sat Art (test code = O2 Sat Art) 99.7 95.0-100.0 N [facility] DallasSrjvlntHVZIYUZEL6860-48-81 00:30:22 Test Item Value Reference Range Interpretation Comments Temp Art (test code = Temp Art) 37.0 [facility] CenterDqwnmudQBMPUQQIAM2286-51-32 21:28:37 Test Item Value Reference Range Interpretation Comments UA Turbidity (test code = Clear (05/23/2013 N UA Turbidity) 16:28:37) [facility]ZdfhisoGYPRZSDJBS5138-11-24 21:28:37 Test Item Value Reference Range Interpretation Comments UA Spec Grav (test code = UA Spec 1.[address] [facility] CenterAvbqznnQJLOMESBBF6057-46-37 21:28:37 Test Item Value Reference Range Interpretation Comments UA pH (test code = UA pH) 6.5 1 5.0-8.[address] [facility] CenterSlpevuwQDVHTQXAAX7375-26-18 21:28:37 Test Item Value Reference Range Interpretation Comments UA Protein (test code = Trace A UA Protein) *ABN*(05/23/2013 16:28:37) [facility] CenterBfiywezFMJEKUNRIX5077-96-62 21:28:37 Test Item Value Reference Range Interpretation Comments UA Glucose (test code Negative (05/23/2013 N = UA Glucose) 16:28:37) [facility] CenterGgmglezQFSDOHCMLA6033-91-47 21:28:37 Test Item Value Reference Range Interpretation Comments UA Ketones (test code = Trace A UA Ketones) *ABN*(05/23/2013 16:28:37) [facility] CenterBkizdtiEMHGNXMMGC8853-89-59 21:28:37 Test Item Value Reference Range Interpretation Comments UA Bili (test code = Negative *NA*(05/23/2013 UA Bili) 16:28:37) [facility] CenterPkzstdlMVYREXYDSU5562-40-33 21:28:37 Test Item Value Reference Range Interpretation Comments UA Blood (test code = Negative (05/23/2013 N UA Blood) 16:28:37) [facility] CenterHnhbuzeDWNALFBWEG0524-46-72 21:28:37 Test Item Value Reference Range Interpretation Comments UA Urobilinogen (test code = UA 0.2 0.1-1.0 N Urobilinogen) [facility] CenterJlzsqgzPDQBDFNRTK3957-63-41 21:28:37 Test Item Value Reference Range Interpretation Comments UA Leuk Est (test Negative (05/23/2013 N code = UA Leuk Est) 16:28:37) [facility] CenterGjuozckESUSQTQNPX3715-58-22 21:28:37 Test Item Value Reference Range Interpretation Comments UA WBC (test code = 1 See_Comment [Automa isha message] The UA WBC) system which ge nerated this result transmit isha reference range : <=5. The reference range was not used to interpr et this result as lorrie l/abnormal. [facility] CenterGgwkbueZHRRQBXARV6017-18-75 21:28:37 Test Item Value Reference Range Interpretation Comments UA Nitrite (test code Negative (05/23/2013 N = UA Nitrite) 16:28:37) [facility] CenterCyqflpnMKFRNHLNDV2264-28-24 21:28:37 Test Item Value Reference Range Interpretation Comments Micro? (test code = Performed (05/23/2013 N Micro?) 16:28:37) [facility]qgteqeGXSFGXVOVH3875-69-68 21:28:37 Test Item Value Reference Range Interpretation Comments UA Sq Epi (test code = UA Sq Epi) Rare /LPF N [facility]DfqxszzCQKWEYTXNF6387-34-75 21:28:37 Test Item Value Reference Range Interpretation Comments UA RBC (test code = UA RBC) 1 [facility] PasoYumgbelTPPEORVPYP6644-23-02 21:28:37 Test Item Value Reference Range Interpretation Comments UA Bacteria (test code = UA Bacteria) Rare [facility]PtohudnTQDBRUGPAA9397-50-46 21:28:37 Test Item Value Reference Range Interpretation Comments UA Mucus (test code = UA Mucus) Rare /LPF N [facility] PasoRiqlvclCPCPAISBGF6990-26-72 21:28:37 Test Item Value Reference Range Interpretation Comments UA Color (test code = Yellow *NA*(05/23/2013 UA Color) 16:28:37) [facility] 3[facility] [id number] 20:10:00 Test Item Value Reference Range Interpretation Comments ABO/Rh (test code = ABO/Rh) O POS [facility] [id number] 20:10:00 Test Item Value Reference Range Interpretation Comments Antibody Scrn (test Negative (05/23/2013 N code = Antibody Scrn) 15:10:00) [facility]IwyrbxiGJURHSYXZ9951-00-46 20:02:50 Test Item Value Reference Range Interpretation Comments pO2 Dat (test code = pO2 Dat) 56 20-49 H [facility] PasoBitqrlyLXXSZZLOR0304-73-00 20:02:50 Test Item Value Reference Range Interpretation Comments BE Dat (test code = 3 See_Comment H [Automa isha message] The BE Dat) system which ge nerated this result transmit isha reference range : <=2. The reference range was not used to interpr et this result as lorrie l/abnormal. [facility] UxvnbehFCTYANZER6429-69-96 20:02:50 Test Item Value Reference Range Interpretation Comments HCO3 Dat (test code = HCO3 Dat) 25 22-26 N [facility] PasoHovhzxeNZGYYTUHP7344-00-58 20:02:50 Test Item Value Reference Range Interpretation Comments pCO2 Dat (test code = pCO2 Dat) 30 38-52 L [facility] PasoOzpndatUPCNEDXDW4392-06-55 20:02:50 Test Item Value Reference Range Interpretation Comments pH Dat (test code = pH Dat) 7.53 7.28-7.42 H [facility]XmxslyaSUERGZQJF1188-24-14 20:02:50 Test Item Value Reference Range Interpretation Comments O2 Sat Dat (test code = O2 Sat Dat) 92.1 40.0-70.0 H [facility] DallasMwqkqlgIMPTGEDSV2029-24-14 20:02:50 Test Item Value Reference Range Interpretation Comments Temp Dat (test code = Temp Dat) 37.0 [facility] DallasFahkkwbQXTMNGTXK2288-42-64 20:00:00 Test Item Value Reference Range Interpretation Comments Etoh (%) (test code = Etoh (%)) no gt [facility] DallasIdyasthXMWTJTQDQ2630-73-92 20:00:00 Test Item Value Reference Range Interpretation Comments Ethanol Lvl (test code = Ethanol Lvl) no gt [facility] DallasQryufepVMGIVUZVI0657-07-53 20:00:00 Test Item Value Reference Range Interpretation Comments Lactic Acid Lvl (test code = Lactic 1.4 0.5-2.2 N Acid Lvl) [facility]DwudbqrVAFLLYVVBY6833-11-09 20:00:00 Test Item Value Reference Range Interpretation Comments Rapid TEG Sample Type Citrated Whole Blood (test code = Rapid TEG Sample Type) [facility] CenterAckmqnrLTSXMSLWIP5547-84-33 20:00:00 Test Item Value Reference Range Interpretation Comments K-time (test code = K-time) 0.9 min 0.6-2.3 N [facility] CenterVqcmhnjOEJQZFACLJ8611-61-26 20:00:00 Test Item Value Reference Range Interpretation Comments R-time (test code = R-time) 0.7 min 0.4-0.7 N [facility] CenterZgsvwabRLKLIRBOIP7297-66-22 20:00:00 Test Item Value Reference Range Interpretation Comments Split Point (test code = Split Point) 0.6 min [facility] CenterCwidmkqMSESZCSBUY8946-18-77 20:00:00 Test Item Value Reference Range Interpretation Comments ACT (TEG) (test code = ACT (TEG)) 113 s 86-118 N [facility] CenterNtillkoSQDFHOOVYG0129-89-93 20:00:00 Test Item Value Reference Range Interpretation Comments G-value (test code = G-value) 9.9 5.0-11.6 N [facility] CenterGldmktvNJRWHXRHAN2882-56-72 20:00:00 Test Item Value Reference Range Interpretation Comments Max Amp (test code = Max Amp) 67 mm 52-71 N [facility] CenterOloslgcTMZERAORAF6698-08-62 20:00:00 Test Item Value Reference Range Interpretation Comments Angle (test code = Angle) 79 degrees 64-80 N [facility] CenterAeckzpfFMCLFYNSEJ2557-65-47 20:00:00 Test Item Value Reference Range Interpretation Comments Estimated % Lysis (test 0.6 See_Comment N [Au tomated message] The code = Estimated % system wh ich generated Lysis) this result tra nsmitted reference range : <=7.5. The reference r jana was not used to int erpret this result as normal/abnormal . [facility] CenterYxemgmsWFNILHQXPN8937-75-22 20:00:00 Test Item Value Reference Range Interpretation Comments RBC Morph (test code = Normal (05/23/2013 N RBC Morph) 15:00:00) [facility] CenterKnszjtqQZOCPSNGYS6990-84-22 20:00:00 Test Item Value Reference Range Interpretation Comments Plt Morph (test code = Normal (05/23/2013 N Plt Morph) 15:00:00) [facility] CenterPwgxvvwKJXVCBLBML6059-04-27 20:00:00 Test Item Value Reference Range Interpretation Comments Basophils # (test code 0.3 See_Comment H [Aut omated message] The = Basophils #) system which generated this result tra nsmitted reference range : <=0.2. The reference r jana was not used to int erpret this result as normal/abnormal . [facility] CenterYewgiedIFZKXFGHNH2694-26-33 20:00:00 Test Item Value Reference Range Interpretation Comments Eosinophils # (test code 0.4 See_Comment N [A utomated message] The = Eosinophils #) system ic h generated this result tra nsmitted reference range : <=0.5. The reference r jana was not used to int erpret this result as normal/abnormal . [facility]
[2022-06-03] MEDS ORDERED: FAMOTIDINE 20 MG/2 ML VIAL IV ONE (21:21)
[2022-06-03] MEDS ORDERED: ONDANSETRON 4 MG/2 ML VIAL ONE (21:21)
[2022-06-03] MEDS ORDERED: NA CHLORIDE 0.9% 1,000 ML ONE (21:21)
[2022-06-03 22:01] LABS: Hematocrit 42.4 % (39.6-49.0); Lymphocytes % 6.2 % (15.3-44.8); MCV 90.9 fL (80-100); MPV 8.6 fL (7.6-11.3); RBC Red Blood Cell Count 4.67 M/uL (4.33-5.43)
[2022-06-03 22:15] LABS: Albumin 3.2 g/dL (3.4-5.0); Bilirubin Total 0.9 mg/dL (0.2-1.0); Protein, Total 7.2 g/dL (6.4-8.2)
[2022-06-03 22:16] LABS: Potassium 4.8 mmol/L (3.5-5.1)
--- NOTE | 2022-06-03 22:44 | RAD REPORT ---
EXAM DESCRIPTION: CTAbdomen Pelvis W Contrast - 06/03/2022 10:36 pm CLINICAL HISTORY: Abdominal pain. Nausea/vomiting COMPARISON: <Comparisons> TECHNIQUE: Biphasic CT imaging of the abdomen and pelvis was performed with 100 ml non-ionic IV cont rast. All CT scans are performed using dose optimization technique as appropriate and may include automated exposure control or mA/KV adjustment according to patient size. 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 The liver, spleen, pancreas, adrenal glands and kidneys are within normal limits. There are thickened and dilated small bowel loops present in the central and lower abdomen. These are fluid filled and mildly distended. This is compatible with a partial mechanical small-bowel obstruct ion. 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 No free air seen. No significant free fluid collect ions or abscess. Nonvisualized appendix. No evidence of significant lymphadenopathy. 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
--- NOTE | 2022-06-03 23:01 | ER ---
Nurse's Notes [facility] Name: J Carlos Bernal Age: 81 yrs Sex: Male : 1940 Arrival Date: 06/03/2022 Time: 20:26 Bed 20 Private MD: Diagnosis: Bowel obstruction;Abdominal pain, unspecified;Nausea with vomiting, unspecified;SARS-associated coronavirus as the cause of diseases classified elsewhere Presentation: 06/03 20:47 Chief complaint: Patient states: Pt's daughter reports pt has not felt well today with tw5 loss of appetite. Daughter reports pt had a routine CT yesterday that demonstrated constipation but pt has had multiple episodes of diarrhea today. Unknown if pt took any medications as he has dementia. Daughter reports pt is congested today. Coronavirus screen: Vaccine status: Patient reports being unvaccinated. Client denies travel out of the [place] in the last 14 days. Ebola Screen: Patient negative for fever greater than or equal to 101.5 degrees Fahrenheit, and additional compatible Ebola Virus Disease symptoms Patient denies exposure to infectious person. Initial Sepsis Screen: Does the patient meet any 2 criteria? No. Patient's initial sepsis screen is negative. Does the patient have a suspected source of infection? No. Patient's initial sepsis screen is negative. Risk Assessment: Do you want to hurt yourself or someone else? Patient reports no desire to harm self or others. Onset of symptoms was June 03, 2022. 20:47 Method Of Arrival: Ambulatory tw5 20:47 Acuity: ORION 3 tw5 Triage Assessment: 20:50 General: Appears in no apparent distress. Behavior is calm, cooperative. Pain: Denies tw5 pain. GI: Reports diarrhea, nausea, vomiting. 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 Last tetanus immunization: up to date. - Social history:: Smoking status: Patient denies any tobacco usage or history of. Screenin:10 Abuse screen: Denies threats or abuse. Denies injuries from another. Nutritional aa9 screening: Has had N/V for 3 or more days. Tuberculosis screening: No symptoms or risk factors identified. Fall Risk Secondary diagnosis (15 points) dementia. Assessment: 21:05 General: Appears uncomfortable, slender, Behavior is cooperative, anxious. General: aa9 daughter states," He is unable to hold his bowel movements, this just started today, he has been vomiting and his voice is hoarse now. I can't tell how often his vomiting because he has dementia and he can't tell me either.". Neuro: Level of Consciousness is awake, alert, obeys commands, Oriented to person, place. Cardiovascular: Patient's skin is warm and dry. Respiratory: Airway is patent Respiratory effort is even, unlabored. GI: Abdomen is flat. GI: pt appears to be swallowing frequently. Derm: Skin with poor turgor. 23:00 General: Appears comfortable, slender, Behavior is cooperative, appropriate for age, aa9 quiet. 23:00 Pain: Denies pain. Respiratory: Airway is patent Respiratory effort is even, unlabored. aa9 06/04 00:11 Reassessment: Patient appears in no apparent distress at this time. Patient and/or aa9 family updated on plan of care and expected duration. Pain level reassessed. Patient is alert, oriented x 3, equal unlabored respirations, skin warm/dry/pink. General: Appears comfortable, slender, Behavior is cooperative, quiet. General: pt supine in bed, eyes closed, breathing equal and regularly daughter at bedside, door closed, lights dimmed. Cardiovascular: Patient's skin is warm and dry. Respiratory: Airway is patent Respiratory effort is even, unlabored. GI: Abdomen is flat, Abd is soft X 4 quads. 01:30 Reassessment: Patient appears in no apparent distress at this time. Patient and/or aa9 family updated on plan of care and expected duration. Pain level reassessed. General: daughter at bedside notified of room opening, room transfer pending completion of 1 L NS bolus.. Pain: Denies pain. 02:15 General: Report provided to Brigette DOLAN, pt transported via stretcher to room 417 with shefali aa9 and daughter. pt stable, daughter understands need for admission. R FA IV site flushes well. Daughter denies concerns. . Vital Signs: 06/03 20:47 BP 115 / 76; Pulse 58; Resp 20; Temp 97.9; Pulse Ox 96% ; Weight 63.5 kg; Height 5 ft. tw5 6 in. (167.64 cm); Pain 0/10; 21:10 BP 131 / 92; Pulse 105; Resp 20 S; Pulse Ox 100% on R/A; aa9 21:40 BP 129 / 77; Pulse 101; Resp 15 S; Pulse Ox 97% on R/A; aa9 22:20 BP 128 / 112; Pulse 84; Resp 18 S; Pulse Ox 98% on R/A; aa9 23:30 BP 116 / 70; Pulse 101; Resp 16 S; Pulse Ox 97% on R/A; aa9 06/04 00:00 BP 134 / 76; Pulse 99; Resp 18 S; Pulse Ox 98% ; Pain 0/10; aa9 00:30 BP 119 / 76; Pulse 100; Resp 18 S; Pulse Ox 98% on R/A; aa9 01:00 BP 95 / 60; Pulse 103; Resp 18 S; Temp 98.1; Pulse Ox 98% on R/A; aa9 02:04 BP 96 / 51; Pulse 76; Resp 17 S; Pulse Ox 96% on R/A; Pain 0/10; aa9 02:11 BP 91 / 74; Pulse 85; Resp 17 S; Pulse Ox 98% on R/A; Pain 0/10; aa9 06/03 20:47 Body Mass Index 22.60 (63.50 kg, 167.64 cm) tw5 ED Course: 06/03 20:26 Patient arrived in ED. ag3 20:37 Jonny Jones DO is Attending Physician. ms3 20:50 Triage completed. tw5 20:52 Arm band placed on left wrist. tw5 20:55 Cathleen Cabrera, RN is Primary Nurse. aa9 21:11 Patient has correct armband on for positive identification. Placed in gown. Bed in low aa9 position. Call light in reach. Side rails up X2. Adult w/ patient. Pulse ox on. NIBP on. Warm blanket given. 21:35 Inserted saline lock: 20 gauge in right forearm, using aseptic technique. Blood aa9 collected. 21:39 CBC with Diff Sent. aa9 21:39 CMP Sent. aa9 21:39 Lipase Sent. aa9 22:38 CT Abd/Pelvis - IV Contrast Only In Process Unspecified. EDMS 23:01 Rdoolfo Sheriff MD is Hospitalizing Provider. ms3 23:41 Ptt, Activated Sent. aa9 23:41 Protime (+inr) Sent. aa9 23:41 Lactate Sent. aa9 23:42 Blood Culture Adult (2) Sent. aa9 06/04 00:08 Blood Culture Adult (2) Sent. aa9 00:31 SARS RAPID Sent. aa9 02:05 No provider procedures requiring assistance completed. Patient admitted, IV remains in aa9 place. Administered Medications: 06/03 21:39 Drug: NS 0.9% 1000 ml Route: IV; Rate: 1 bolus; Site: right forearm; aa9 06/04 00:32 Follow up: IV Status: Completed infusion; IV Intake: 1000ml aa9 06/03 21:39 Drug: Pepcid (famotidine) 20 mg Route: IVP; Site: right forearm; aa9 06/04 00:32 Follow up: Response: No adverse reaction aa9 06/03 21:39 Drug: Zofran (Ondansetron) 4 mg Route: IVP; Site: right forearm; aa9 06/04 00:32 Follow up: Response: No adverse reaction aa9 00:07 Drug: Zosyn (piperacillin-tazobactam) 3.375 grams Route: IVPB; Infused Over: 60 mins; aa9 Site: right forearm; 00:35 Follow up: Response: No adverse reaction; IV Status: Completed infusion; IV Intake: aa9 100ml 01:11 Drug: NS 0.9% 1000 ml Route: IV; Rate: 1 bolus; Site: right forearm; aa9 01:59 Follow up: Response: No adverse reaction; IV Status: Completed infusion; IV Intake: aa9 1000ml Medication: 06/03 22:18 VIS not applicable for this client. aa9 Intake: 06/04 00:32 IV: 1000ml; Total: 1000ml. aa9 00:35 IV: 100ml; Total: 1100ml. aa9 01:59 IV: 1000ml; Total: 2100ml. aa9 Outcome: 06/03 23:01 Decision to Hospitalize by Provider. ms3 06/04 02:06 Instructed on the need for admit. aa9 02:06 Condition: stable aa9 02:11 Admitted to Med/surg accompanied by nurse, via stretcher, room 417, with chart, Report aa9 called to Brigette DOLAN 02:22 Patient left the ED. aa9 Signatures: Dispatcher [employer] EDMS Tia Brandon ag3 Jonny Jones DO DO ms3 Mary Ellen Cabrera tw5 Cathleen Cabrera, RN RN aa9 Corrections: (The following items were deleted from the chart) 06/03 21:41 21:20 BP 129 / 77; Pulse 101bpm; Resp 15bpm; Spontaneous; Pulse Ox 97% RA; aa9 aa9 06/04 01:14 00:30 BP 133 / 76; Pulse 100bpm; Resp 18bpm; Spontaneous; Pulse Ox 98% RA; aa9 aa9
--- NOTE | 2022-06-03 23:02 | EDPHYS ---
Physician Documentation [facility] Name: J Carlos Bernal Age: 81 yrs Sex: Male : 1940 Arrival Date: 06/03/2022 Time: 20:26 Bed 20 Private MD: ED Physician Jonny Jones HPI: 06/03 23:13 This 81 yrs old Male presents to ER via Ambulatory with complaints of ms3 Vomiting/Diarrhea, Non-Productive Cough. 23:13 81-year-old male with past medical history of cancer, hypertension, myocardial ms3 infarctioncoronary artery disease, asbestosis presents with his daughter for vomiting and diarrhea that began this morning. Patient denies abdominal pain at this time. Patient denies alleviating or inciting factors. Patient's daughter notes patient has had decreased p.o. intake and some bowel and bladder incontinence today.. Historical: - Allergies: 20:50 No Known Allergies; tw5 - PMHx: 20:50 Myocardial infarction; Hypertensive disorder; tw 20:52 Asbestosis; tw5 - Immunization history:: Adult Immunizations up to date, Client reports having NOT received the Covid vaccine. Last tetanus immunization: up to date. - Social history:: Smoking status: Patient denies any tobacco usage or history of. ROS: 23:13 Constitutional: Negative for fever, and chills. Neck: Negative for injury, pain, and ms3 swelling, Cardiovascular: Negative for chest pain, and palpitations. Respiratory: Negative for shortness of breath, cough, wheezing, and pleuritic chest pain, MS/Extremity: Negative for injury and deformity. 23:13 Abdomen/GI: Positive for abdominal pain, nausea, vomiting, diarrhea. 23:13 All other systems are negative. Exam: 23:13 Constitutional: This is a well developed, well nourished patient who is awake, alert, ms3 and in no acute distress. Neck: Trachea midline, no cervical lymphadenopathy. Supple, full range of motion without nuchal rigidity, or vertebral point tenderness. No Meningismus. Chest/axilla: Normal chest wall appearance and motion. Nontender with no deformity. Cardiovascular: Regular rate and rhythm with a normal S1 and S2. No gallops, murmurs, or rubs. Normal PMI, no JVD. No pulse deficits. Respiratory: Lungs have equal breath sounds bilaterally, clear to auscultation and percussion. No rales, rhonchi or wheezes noted. No increased work of breathing, no retractions or nasal flaring. 23:13 Abdomen/GI: Inspection: abdomen appears normal, Bowel sounds: normal, Palpation: nontender, Hernia: noted in the ventral hernia, incarceration, is not appreciated, tenderness, is not appreciated. 23:56 ECG was reviewed by the Attending Physician. ms3 Vital Signs: 20:47 BP 115 / 76; Pulse 58; Resp 20; Temp 97.9; Pulse Ox 96% ; Weight 63.5 kg; Height 5 ft. tw5 6 in. (167.64 cm); Pain 0/10; 21:10 BP 131 / 92; Pulse 105; Resp 20 S; Pulse Ox 100% on R/A; aa9 21:40 BP 129 / 77; Pulse 101; Resp 15 S; Pulse Ox 97% on R/A; aa9 22:20 BP 128 / 112; Pulse 84; Resp 18 S; Pulse Ox 98% on R/A; aa9 23:30 BP 116 / 70; Pulse 101; Resp 16 S; Pulse Ox 97% on R/A; aa9 06/04 00:00 BP 134 / 76; Pulse 99; Resp 18 S; Pulse Ox 98% ; Pain 0/10; aa9 00:30 BP 119 / 76; Pulse 100; Resp 18 S; Pulse Ox 98% on R/A; aa9 01:00 BP 95 / 60; Pulse 103; Resp 18 S; Temp 98.1; Pulse Ox 98% on R/A; aa9 02:04 BP 96 / 51; Pulse 76; Resp 17 S; Pulse Ox 96% on R/A; Pain 0/10; aa9 02:11 BP 91 / 74; Pulse 85; Resp 17 S; Pulse Ox 98% on R/A; Pain 0/10; aa9 06/03 20:47 Body Mass Index 22.60 (63.50 kg, 167.64 cm) tw5 MDM: 06/03 21:11 Patient medically screened. ms3 23:13 Differential diagnosis: Nonspecific abd pain, viral gastroenteritis, Bowel obstruction. ms3 06/04 01:22 ED course: Discussed case with Dr Lane. patient to be NPO. He will consult on ms3 patient.. 01:24 Data reviewed: vital signs, nurses notes, lab test result(s), EKG, radiologic studies, ms3 and as a result, I will admit patient. Data interpreted: monitoring engineer: rate is 78 beats/min, rhythm is normal sinus rhythm, regular, with unifocal PVCs, Interpretation: normal rate, normal rhythm, Pulse oximetry: on room air is 98 %. Interpretation: normal. Counseling: I had a detailed discussion with the patient and/or guardian regarding: the historical points, exam findings, and any diagnostic results supporting the discharge/admit diagnosis, lab results, radiology results, the need for further work-up and treatment in the hospital. 06/03 21:10 Order name: CBC with Diff; Complete Time: 22:16 ms3 06/03 21:10 Order name: CMP; Complete Time: 22:27 ms3 06/03 21:10 Order name: Lipase; Complete Time: 22:27 ms3 06/03 21:10 Order name: Urine Microscopic Only; Complete Time: 01:21 ms3 06/03 22:16 Order name: Blood Culture Adult (2) ms3 06/03 22:16 Order name: Lactate; Complete Time: 01:21 ms3 06/03 21:10 Order name: CT Abd/Pelvis - IV Contrast Only; Complete Time: 22:58 ms3 06/03 22:16 Order name: Protime (+inr); Complete Time: 01:21 ms3 06/03 22:16 Order name: Ptt, Activated; Complete Time: 01:21 ms3 06/03 23:02 Order name: SARS RAPID; Complete Time: 01:21 ms3 06/03 23:34 Order name: Urine Dipstick-Ancillary; Complete Time: 01:21 EDMS 06/04 00:16 Order name: Glucose, Ancillary Testing; Complete Time: 01:21 EDMS 06/03 21:11 Order name: IV Saline Lock; Complete Time: 21:39 ms3 06/03 21:11 Order name: Labs collected and sent; Complete Time: 21:39 ms3 06/03 21:11 Order name: Urine Dipstick-Ancillary (obtain specimen); Complete Time: 00:32 ms3 06/03 22:16 Order name: Accucheck; Complete Time: 00:08 ms3 06/03 22:16 Order name: Cardiac monitoring; Complete Time: 23:42 ms3 06/03 22:16 Order name: EKG - Nurse/Tech; Complete Time: 00:08 ms3 06/03 22:16 Order name: IV Saline Lock - Large Bore; Complete Time: 23:42 ms3 06/03 22:16 Order name: O2 Per Protocol; Complete Time: 23:42 ms3 06/03 22:16 Order name: O2 Sat Monitoring; Complete Time: 23:42 ms3 06/03 22:16 Order name: Vital Signs; Complete Time: 23:42 ms3 EC/14 23:56 Rate is 99 beats/min. Rhythm is regular. QRS [place] is Normal. [place] interval is normal. ms3 Clinical impression: NSR w/ Non-specific ST/T Changes. Interpreted by me. Reviewed by me. Administered Medications: 21:39 Drug: NS 0.9% 1000 ml Route: IV; Rate: 1 bolus; Site: right forearm; aa9 06/04 00:32 Follow up: IV Status: Completed infusion; IV Intake: 1000ml aa9 06/03 21:39 Drug: Pepcid (famotidine) 20 mg Route: IVP; Site: right forearm; aa9 06/04 00:32 Follow up: Response: No adverse reaction 9 06/03 21:39 Drug: Zofran (Ondansetron) 4 mg Route: IVP; Site: right forearm; aa9 06/04 00:32 Follow up: Response: No adverse reaction aa9 00:07 Drug: Zosyn (piperacillin-tazobactam) 3.375 grams Route: IVPB; Infused Over: 60 mins; aa9 Site: right forearm; 00:35 Follow up: Response: No adverse reaction; IV Status: Completed infusion; IV Intake: aa9 100ml 01:11 Drug: NS 0.9% 1000 ml Route: IV; Rate: 1 bolus; Site: right forearm; aa9 01:59 Follow up: Response: No adverse reaction; IV Status: Completed infusion; IV Intake: aa9 1000ml Disposition Summary: 06/03/22 23:01 Hospitalization Ordered Hospitalization Status: Inpatient Admission ms3 Provider: Rodolfo Sheriff ms3 Location: Telemetry/MedSur (Inpatient) ms3 Condition: Stable ms3 Problem: new ms3 Symptoms: are unchanged ms3 Bed/Room Type: Standard ms3 Room Assignment: 417(06/04/22 01:06) cg Diagnosis - Bowel obstruction ms3 - Abdominal pain, unspecified ms3 - Nausea with vomiting, unspecified ms3 - SARS-associated coronavirus as the cause of diseases classified elsewhere ms3 Forms: - Medication Reconciliation Form ms3 - SBAR form ms3 Signatures: Dispatcher [employer] EDJimmy Leahy, DIAGNOSTIC RADIOLOGIST-C DIAGNOSTIC RADIOLOGIST-Cla1 Susan George RN RN cg Jonny Jones DO DO ms3 Mary Ellen Cabrera tw5 Cathleen Cabrera, RN RN aa9 Corrections: (The following items were deleted from the chart) 01:06 06/03 23:01 ms3 cg
[2022-06-03 23:34] LABS: Urine Blood Trace-intact (Negative); Urine Glucose Negative (Negative); Urine Protein Trace (Negative); Urine Specific Gravity 1.015 (1.005-1.030)
[2022-06-03] MEDS ORDERED: NA CHLORIDE 0.9% 100 ML IV ONE (23:44)
[2022-06-03] MEDS ORDERED: PIPERACIL/TAZO 3.375 GM VIAL IV ONE (23:44)
[2022-06-03 23:59] LABS: Protime INR 1.11
[2022-06-04 00:08] LABS: Urine Bacteria <20 /HPF (<20); Urine Granular Casts 0-5 /LPF (None Seen); Urine Mucus Slight /HPF (None Seen); Urine RBC <5 /HPF (None Seen)
--- NOTE | 2022-06-04 00:39 | P.HP ---
Certification for Inpatient Patient admitted to: Inpatient With expected LOS: >2 Midnights Patient will require the following post-hospital care: None Practitioner: I am a practitioner with admitting privileges, knowledge of patient current condition, hospital course, and medical plan of care. Services: Services provided to patient in accordance with Admission requirements found in Title 42 Section 412.3 of the Code of Federal Regulations Patient History Date of Service: 06/04/22 Primary Care Provider: Dr. Davila Reason for admission: Small bowel obstruction History of Present Illness: 81-year-old male with history of CAD status post CABG, hypertension, asbestosis, dementia presents the emergency department for 1 day of nausea/vomiting. His daughter reports that he has had approximately 3 episodes of vomiting and multiple episodes of diarrhea throughout the day today. He was evaluated in the emergency department his labs were significant for leukocytosis with white blood cell count of 15.5. CT abdomen pelvis was obtained which revealed partial mechanical small bowel traction suspected likely result of ventral hernia containing small bowel loop in the middle lower abdomen. ED provider discussed case with general surgery who will happily consult on patient. Will admit for further evaluation and management with partial small bowel obstruction. Allergies No Known Allergies Allergy (Unverified 07/12/16 08:36) - Past Medical/Surgical History -: Dementia -: CAD status post CABG -: Hypertension -: Asbestosis -: CABG -: Facial sx/trauma -: ostomy with reversal Psychosocial/ Personal History: Pt lives at home with his , is retired. - Family History Mother -: Cancer Father -: Other (see notes) (alz) - Social History Smoking Status: Never smoker Alcohol use: No CD- Drugs: No Caffeine use: Yes Place of Residence: Home Review of Systems 10-point ROS is otherwise unremarkable Gastrointestinal: Nausea, Vomiting, Abdominal Pain, Diarrhea Physical Examination - Physical Exam General: Alert, In no apparent distress, Oriented x2 HEENT: Atraumatic, PERRLA, Mucous membr. moist/pink, EOMI, Sclerae nonicteric Neck: Supple, 2+ carotid pulse no bruit, No LAD, Without JVD or thyroid abnormality Respiratory: Clear to auscultation bilaterally, Normal air movement Cardiovascular: Regular rate/rhythm, Normal S1 S2 Capillary refill: <2 Seconds Gastrointestinal: Hypoactive, Soft and benign, Non-distended, Tenderness (Mild generalized) Musculoskeletal: No tenderness Integumentary: No rashes Neurological: Normal speech, Normal strength at 5/5 x4 extr, Normal tone, Normal affect - Studies Laboratory Data (last 24 hrs) 06/03/22 23:20: PT 12.2, INR 1.11, APTT 22.7 L 06/03/22 21:31: Sodium 137, Potassium 4.8, BUN 42 H, Creatinine 1.09, Glucose 124 H, Total Bilirubin 0.9, AST 32, ALT 27, Alkaline Phosphatase 66, Lipase 46 L 06/03/22 21:31: WBC 15.50 H, Hgb 14.1, Hct 42.4, Plt Count 230 Assessment and Plan - Plan Assessment: SBO CAD s/p CABG Hypertension Dementia Plan: SBO: NPO, IVF, IV antibiotics given leukocytosis, as needed pain medications and antiemetics. Abdomen is soft and nondistended, not actively vomiting will hold off on NGT for now. General surgery consulted. Appreciate further input from general surgery. CAD s/p CABG: Hold oral medications, monitor on telemetry. Hypertension: Hold oral medications, monitor on telemetry. Dementia: At baseline currently. DVT PPX: SCD Code status: Full Discharge Plan: Home Plan to discharge in: 72 Hours - Advance Directives Does patient have a Living Will: No Does patient have a Durable POA for Healthcare: No - Code Status/Comfort Care Code Status Assessed: Yes (Full code) Critical Care: No Time Spent Managing Pts Care (In Minutes): 70
[2022-06-04 00:52] LABS: SARS-CoV-2 Antigen Rapid Res Positive (Negative)
[2022-06-04] MEDS ORDERED: NA CHLORIDE 0.9% 1,000 ML ONE (01:08)
[2022-06-04] MEDS ORDERED: D5 0.45 NS 1,000 ML IV ONE (01:54)
[2022-06-04] MEDS: D5 0.45 NS 1,000 ML IV SCH ×3 (02:30→22:12)
[2022-06-04] MEDS ORDERED: MORPHINE 2 MG/ML SYR IV PRN (02:38)
[2022-06-04] MEDS: ONDANSETRON 4 MG/2 ML VIAL IV PRN ×2 (04:28→23:39)
[2022-06-04] MEDS: PIPER TAZO 3.375 GM in NA CHLORIDE 0.9% 100 ML IV SCH ×2 (08:15→17:09)
--- NOTE | 2022-06-04 13:30 | CON ---
Date of Consultation: 06/04/2022 Reason For Service: Small bowel obstruction. History Of Present Illness: This is the case of a male, who comes to us with abdominal pain. He has been having this for several days to the point that he even had an elective CAT scan done apparently the day before admission that shows constipation. He has history of previous surgeries. He has a c ardiac surgery complicated with also abdominal surgeries that he has to be have bowel resection with an ostomy and then reversal of that ostomy and that happened on the . He is better since then. He does not recall the last colonoscopy much information is obtained from her. Apparently , the patient has history of dementia. Today, he is comfortable. He is not complaining of any pain. No nausea or vomiting while he is here. There is a possibility of gas from below. The patient was admitted to the hospital since also found to have COVID. The patient's family state that hernia the re has been there for a long time, never been any issue. Allergies: NONE. Past Medical History: MIs, hypertension disorders, also bowel resections, asbestosis. Social History: He does not smoke. He does not drink alcohol. Family History: Noncontributory. Review of Systems: At this moment today, the patient does not have any nausea, no vomiting and the abdominal pain appare ntly is gone. No melena. No dysuria. No hematochezia. Physical Examination: General: The patient is awake, alert. No distress. Cooperative. HEENT: Pupils are equal and reactive. Anicteric. Neck: Supple. Chest: Clear. Abdomen: Soft and depressible. No guarding or rebound. No peritoneal signs. Hernia is reducible. No peritonitis. Bowel sounds positive. Rectal: Deferred. Extremities: Good capillary refill. Laboratory Data: Blood work shows WBC count of 15. INR is 1.1, PTT 22. BUN is 42, albumin is 3.2, lipase 46. COVID positive. CAT scan of the abdomen and pelvis interpreted by Dr. Bolivar as small bryn l obstruction, ventral hernias. Assessment: This is an 81-year-old patient, who comes to us with abdominal pain. He has a CAT scan before trying to find the reason of this pain and they found constipation. The pain got worse, has s ome diarrhea present, and he came to the ER, admitted to the hospital with partial small bowel obstru ction. 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 T hey want us to evaluate that area. The patient right now has abdomen benign. The hernia is reducibl e. He was trying to remember that what he ate the day before, he was getting with some ve getables in it. We explained to him and the family the importance of taking his time to eat, cutting his foot in pieces or chewing appropriately since he has multiple abdominal surgeries and they might be having some kinks or adhesions that would be solid food coming through it, may develop into this. At this moment, I do not see any peritonitis. His hernia is reducible and does not seem to be in d istress. We are going to keep him in bowel rest. Obviously, the family will prefer not to have surg [place] because of his history, but they understand if the bowel obstruction does not improve or clinical ly he deteriorates, then we might have to go for exploratory laparotomy, possible bowel resection, po ssible ostomy, possible hernia repair with benefits, alternatives, and risks including, but not limit ed to infection, bleeding, damage to adjacent structures, anesthesia complication, AL, and even . LACIE/MICHAEL Voice ID: [id number] Report ID: [id number]
[2022-06-05] MEDS: PIPER TAZO 3.375 GM in NA CHLORIDE 0.9% 100 ML IV SCH ×4 (00:41→23:59)
[2022-06-05] MEDS ORDERED: D5 0.45 NS 500 ML IV ONE (05:17)
[2022-06-05] MEDS ORDERED: D5 0.45 NS 1,000 ML IV SCH (05:35)
[2022-06-05 06:55] LABS: Absolute Lymphocytes (CBC) 1.1 K/uL (0.7-4.9); MCV 91.5 fL (80-100); MPV 8.6 fL (7.6-11.3); RBC Red Blood Cell Count 3.27 M/uL (4.33-5.43)
--- NOTE | 2022-06-05 07:21 | RAD REPORT ---
EXAM DESCRIPTION: RAD - Abdomen Single View - 06/05/2022 7:10 am CLINICAL HISTORY: sbo COMPARISON: Abdomen Pelvis W Contrast dated 06/03/2022 FINDINGS: Persistent small-bowel dilatation in the left hemiabdomen. No acute osseous abnormality.Vi sualized lungs are unremarkable.Right hip arthroplasty. Sternotomy. Enteric contrast in the colon. St ernotomy. IMPRESSION: Persistent dilated small bowel in the central and left hemiabdomen similar to 06/03/2022 .
[2022-06-05 07:22] LABS: Albumin 2.3 g/dL (3.4-5.0); Bilirubin Total 0.5 mg/dL (0.2-1.0); Potassium 3.3 mmol/L (3.5-5.1); Protein, Total 4.9 g/dL (6.4-8.2)
[2022-06-05] MEDS: KCL 20 MEQ/100 mL IVPB 20 MEQ/100 ML BAG IV SCH ×2 (08:53→12:44)
--- NOTE | 2022-06-05 09:32 | P.PN ---
Subjective Date of Service: 06/05/22 Primary Care Provider: Dr. Davila Chief Complaint: Small bowel obstruction positive for coronavirus Subjective: Improving (Patient is improving doing better denies any nausea vomiting incidental COVID-positive) Review of Systems is unable to be obtained Physical Examination - Vital Signs Temperature: 98.2 F Blood Pressure: 97/54 Pulse: 64 Respirations: 18 Pulse Ox (%): 98 - Physical Exam General: Alert, Cooperative Respiratory: Clear to auscultation bilaterally Cardiovascular: No edema, Normal S1 S2 Gastrointestinal: Normal bowel sounds, Soft and benign, Non-distended Assessment And Plan - Current Problems (Diagnosis) (1) Small bowel obstruction Current Visit: Yes Status: Acute Plan: Patient is 81 years of age admitted with small bowel obstruction hemodynamically stable evidence of an acute abdomen continue with n.p.o. IV fluids seen by Dr. Domingo VELASQUEZ shows no change still has dilated loops of bowel no change from yesterday incidentally COVID-positive denies any pulmonary complaint labs reviewed white count normal mild hypokalemia no change in medication so far daughter at the bedside
[2022-06-05] MEDS ORDERED: D5NS KCL 20MEQ 20 MEQ/1,000 ML BAG IV SCH (10:00)
[2022-06-05] MEDS ORDERED: Ringers Lactate 1,000 ML IV ONE (15:11)
--- NOTE | 2022-06-05 17:31 | PN ---
Date of Progress Note: 06/05/2022 Reason For Admission: Small bowel obstruction. Subjective: The patient is doing better. No nausea, no vomiting. Passing flatus. Objective: Chest: Clear. Abdomen: Softer. No guarding or rebound. No peritoneal signs. Mild generalized distention. Extremities: Good capillary refill. Laboratory Data: WBC count came back normal to 7.9, hemoglobin of 10.2. X-rays done showing still s ome evidence of distended bowel loops, no free air. Plan: We will repeat the x-ray tomorrow morning. Since the x-ray is still showing significant findi ngs, we might try a diet tomorrow if clinically he improves. We encouraged ambulation. HM/MODL Voice ID: [id number] Report ID: [id number]
[2022-06-05] MEDS ORDERED: FAMOTIDINE 20 MG/2 ML VIAL IV ONE (20:00)
[2022-06-06 04:42] VITALS: BMI 22.4
[2022-06-06 05:05] LABS: Absolute Lymphocytes (CBC) 1.2 K/uL (0.7-4.9); Hematocrit 29.9 % (39.6-49.0); MCV 90.9 fL (80-100); MPV 8.5 fL (7.6-11.3); RBC Red Blood Cell Count 3.29 M/uL (4.33-5.43)
[2022-06-06 05:19] LABS: Albumin 2.3 g/dL (3.4-5.0); Bilirubin Total 0.7 mg/dL (0.2-1.0); Potassium 3.7 mmol/L (3.5-5.1); Protein, Total 5.1 g/dL (6.4-8.2)
--- NOTE | 2022-06-06 08:19 | RAD REPORT ---
EXAM DESCRIPTION: RAD - Abdomen Single View - 06/06/2022 5:40 am CLINICAL HISTORY: Abdominal pain FINDINGS: Mild to moderately dilated small bowel has mildly enlarged since June 05, 2022 Contrast is present within the colon. These findings are compatible with a mildly worsening small bowel obstruction
[2022-06-06] MEDS: PIPER TAZO 3.375 GM in NA CHLORIDE 0.9% 100 ML IV SCH ×2 (08:32→16:48)
[2022-06-06] MEDS ORDERED: POTASSIUM CL SA 10 MEQ TAB PO ONE (09:00)
[2022-06-06] MEDS ORDERED: MINERAL OIL 30 ML UCUP PO ONE (12:21)
[2022-06-06] MEDS: D5 0.45 NS 1,000 ML IV SCH (13:49)
--- NOTE | 2022-06-06 16:12 | EKG ---
Test Date: 2022-06-03 Test Time: 23:56:42 Electric Power Machine Operator: SUZANNE MEASUREMENT RESULTS: Intervals: Rate: 99 NC: 142 QRSD: 76 QT: 340 QTc: 436 [place]: P: 65 NC: 142 QRS: 57 T: 75 INTERPRETIVE STATEMENTS: Sinus rhythm with premature atrial complexes Anterior infarct, age undetermined Abnormal ECG Compared to ECG 12/04/1995 11:28:00 Atrial premature complex(es) now present Myocardial infarct finding now present ST (T wave) deviation no longer present Electronically Signed On 06-06-22 16:09:23 CDT by Geovany George
--- NOTE | 2022-06-06 16:23 | P.PN ---
Date of Service: 06/06/22
--- NOTE | 2022-06-06 16:34 | PN ---
Date of Progress Note: 06/06/2022 Subjective: Mr. Bernal is an 81-year-old person, came with several weeks history of abdominal pain. I t is discomfort. He does not feel good on his own. The family stated that really everything started since 05/30. He was fine. He was moving . He is also COVID positive, but he never had a ll those main symptoms of it. Since then, he is not himself. Dementia has been more pronounced, hav ing some discomfort, having constipation, and then had imaging done before coming to the hospital and did not improve and then they decided to come to the hospital, found to have at least from a surgica l standpoint small bowel obstruction. During the last 72 hours, we saw the patient first day, all we discussed the options for emergent laparotomy, bowel resection, possible ostomy. He has history of bowel resection in the past for unknown reason. He also has colostomy. The family does not know why it was placed there and then also reversal. All this happened in , but since then he has been doing okay. This just happened in April. He has also chronic hernia that has been pushed back a nd forward and never an issue on that area. Last colonoscopy, days unknown, although the CAT scan do ne before this hospital that was done just because he was not feeling great as an outpatient showed s evere constipation. Today, the patient feels good. He is not in any distress. He has no abdominal pain. He said he is passing flatus. Today, I had a long discussion almost with the daughter. I hav e previously talked to the granddaughter and the patient. Review of Systems: No nausea. No vomiting. No fever. No shortness of breath. No chest pain. Passing flatus and he c laimed also bowel movement. Physical Examination: Chest: Clear. Abdomen: Soft and depressible. No guarding or rebound or peritoneal signs. No distention. Extremities: Good capillary refill. Laboratory Data: WBC count is 8.5. An x-ray done today shows no improvement. Assessment: It is an 81-year-old person, admitted with multiple medical problems including partial s mall bowel obstruction of unknown origin. His surgeries were done in the . He recen tly to account for these new findings. Last colonoscopy, we have no document, although they do not t hink it was many years ago. From the surgical standpoint after 72 hours and we see no major improvem ent on the x-ray, we once again have to revisit the possibility of laparotomy possible bowel resectio n, possible ostomy. I know the family is afraid of surgery due to heart disease, especially when we cannot guarantee that we are going to find this problem. At the same time, we may have to find alter eagle since the patient bowel and may need nutrition. So from the surgical standpoint, i f the medical service does not find the etiology of this bowel obstruction, then obviously an explora tion is an opportunity to find out, although may have undesired consequences. Small bowel series als o can put some light on this situation to see we can pinpoint the area of the obstruction, although m ay be partial. Nutrition is important as well as hydration too. The family understand. They want t o try diet since they want to treat the patient clinically, I understand and not just the x-ray becau se the x-ray is different from what the patient feels and they understand the risks of aspiration pne umonia and things of that nature, but I am not going to hold back. I want to make sure that they try everything they can before this time for the surgery since the outcome may be not the one that we ex pect. If not, we encouraged them to once again consider the options of laparotomy, exploratory lapar otomy. LACIE/MICHAEL Voice ID: [id number] Report ID: [id number]
[2022-06-06] MEDS: ONDANSETRON 4 MG/2 ML VIAL IV PRN (16:48)
[2022-06-06] MEDS ORDERED: PANTOPRAZOLE 40 MG INJ IVP ONE (20:15)
[2022-06-06] MEDS ORDERED: PANTOPRAZOLE 40 MG INJ ONE (20:25)
[2022-06-07] MEDS: PIPER TAZO 3.375 GM in NA CHLORIDE 0.9% 100 ML IV SCH ×3 (00:41→17:00)
[2022-06-07 06:53] LABS: Absolute Lymphocytes (CBC) 1.4 K/uL (0.7-4.9); Hematocrit 31.5 % (39.6-49.0); Lymphocytes % 14.6 % (15.3-44.8); MCV 90.5 fL (80-100); MPV 8.6 fL (7.6-11.3); RBC Red Blood Cell Count 3.48 M/uL (4.33-5.43)
[2022-06-07 07:06] LABS: Potassium 3.4 mmol/L (3.5-5.1)
[2022-06-07] MEDS: D5 0.45 NS 1,000 ML IV SCH ×2 (07:31→15:05)
[2022-06-07] MEDS ORDERED: SODIUM CHLORIDE 0.9% 10ML INJ IV PRN ×2 (11:42→12:06)
[2022-06-07] MEDS ORDERED: POTASSIUM CL 40 MEQ in NA CHLORIDE 0.9% 500 ML IV SCH (13:00)
--- NOTE | 2022-06-07 15:03 | PN ---
Date of Progress Note: 06/07/2022 This is a case of an 81-year-old patient with history of dementia with small bowel obstruction. He h as not felt the same since about April 30. This deteriorated to change in mental status, also no t feeling the way he does, little bit more sedentary and then he was found to have also a small bowel obstruction. He has extensive history of surgery in the past for known origin in . He had an HI and then after that he had to have emergent abdominal surgery that required a colostomy, then even tually reversal, but for the last 30 years, he has been doing okay with no complaints. Right now, we noticed when he came here right now, even though the abdomen is soft and depressible with no distent ion, the x-rays show some findings that are consistent with probably a partial small-bowel obstructio n, so he was admitted in the hospital. His x-rays have improved in the last few days. So today we a re doing a small-bowel series to see the extent of his obstruction. I discussed the first day with t he granddaughter. Also, discussed yesterday with the patient's daughter and today there is a new gra nddaughter. She is a respiratory therapist from [place], came here and I am glad she came, so we can discuss once again what is being done for him and the options for surgical surgery. They are going to wait obviously until we have a small bowel series done to make a decision about surgical pl ans and I believe it is a good way to approach this. They understand the risks of surgery, any place , and any time. At the same time, they want him to have also a normal life with normal use of the in testines. We somehow have to think about nutrition in him. It has been few days, he has not had any nutrition. If we do not go for surgery, I encouraged them and the primary doctor to start his paren teral nutrition. His abdomen has been since first time benign with abdomen soft and depressible and nondistended. At this moment, he is doing a small bowel series, so we will see what results we get from there. HM/MODL Voice ID: [id number] Report ID: [id number]
--- NOTE | 2022-06-07 17:16 | RAD REPORT ---
EXAM DESCRIPTION: RAD - Small Bowel Series - 06/07/2022 4:30 pm CLINICAL HISTORY: Abdominal pain/ FINDINGS: The icd 9 coder film demonstrates contrast from a prior CT within colon. Moderate dilatation of jejunum and part of ileum. There is decompressed ileum within the lower pelvis at the site of a ventral hernia. Contrast enters the decompressed ileum by approximately 5 hours IMPRESSION: Small bowel obstruction at the site of a ventral hernia within the pelvis Dr. Lane notified
[2022-06-07] MEDS: PANTOPRAZOLE 40 MG INJ IVP SCH (17:19)
--- NOTE | 2022-06-07 21:46 | CON ---
Reason For Consultation: Cardiac preop risk assessment. History Of Present Illness: This is an 81-year-old male who was apparently admitted with abdominal d iscomfort with nausea and vomiting, suggestive of possible obstruction. I was consulted for preop ev aluation in case for a need for surgical intervention. The patient is a poor historian. However, ap parently he has history of coronary artery disease status post cardiac bypass surgery. He had cardia c cath done in 2016 with patent grafts. He has history of hypertension and dementia. Medications: Refer to reconciliation sheet for detailed list. Allergies: NO KNOWN DRUG ALLERGIES. Family History: No premature coronary artery disease or cancer. Social History: Does not smoke or drink. Does not use any drugs. Review of Systems: All systems reviewed and they are negative except as mentioned HPI. Physical Examination: Vital Signs: Reviewed. Head And Neck: Pupils are equal, reactive to light. Intact eye movements. No JVD. No cervical nod es. Neck is supple. Thyroid is not enlarged. Lungs: Clear to auscultation bilaterally. No rhonchi, rales, or crackles. No accessory muscle use. Heart: Regular rate and rhythm. No extra sounds. Abdomen: Soft, nontender. Bowel sounds positive. No organomegaly. No masses or hernia. No rigidi ty or rebound. Extremities: No edema, clubbing, or cyanosis. Intact pulses. Skin: No rashes. Neurologic: Alert and awake with confusion. No focal deficits appreciated. Lymph Nodes: No cervical or axillary lymphadenopathy. Investigations: BUN is 9, creatinine 0.7. Hemoglobin is 10.7. Assessment And Recommendation: Cardiac preoperative evaluation. The patient is noted to have histor y of coronary artery disease, but if there is suspicion of small bowel obstruction, this is rather ur gent surgery. Obtain echocardiogram and proceed with the surgery without any further cardiac workup as this patient follows up on a regular basis with Dr. Abbasi and had a recent stress test that was okay as per the family; however, we will review the records in the office. At any rate, this sounds an urgent situation that needs surgical intervention. No further cardiac workup will be recommended prior to this surgery. Thank you for the consult. /MICHAEL Voice ID: [id number] Report ID: [id number]
[2022-06-07] MEDS: METOCLOPRAMIDE 10 MG/2mL INJ IV SCH (23:08)
[2022-06-08] MEDS: PIPER TAZO 3.375 GM in NA CHLORIDE 0.9% 100 ML IV SCH ×3 (01:25→17:11)
[2022-06-08 04:07] LABS: Potassium 3.4 mmol/L (3.5-5.1)
[2022-06-08] MEDS: KCL 20 MEQ/100 mL IVPB 20 MEQ/100 ML BAG IV SCH ×2 (04:54→08:19)
[2022-06-08] MEDS: D5 0.45 NS 1,000 ML IV SCH ×2 (04:55→17:20)
--- NOTE | 2022-06-08 06:21 | RAD REPORT ---
EXAM DESCRIPTION: RAD - Abdomen 1 View (KUB) - 06/08/2022 6:09 am CLINICAL HISTORY: SBO COMPARISON: Small Bowel Series dated 06/07/2022; Abdomen Pelvis W Contrast dated 06/03/2022 FINDINGS: Small bowel loops proximal to the ventral hernia site remain dilated but have decreased in size since the June 07 small bowel examination. There has been further antegrade movement of the contrast column increasing in density within the colon. Antegrade movement of colon content is noted with contrast no in the distal rectum. No extravasation of contrast. No free air or pneumatosis. No suspicious calcifications. IMPRESSION: Improved but not fully resolved small bowel obstruction pattern. Continued antegrade movement of the contrast column with most of the small bowel exam contrast now wi thin the colon.
--- NOTE | 2022-06-08 07:02 | ECHO ---
HEIGHT: 5 ft 6 in WEIGHT: 139 lb 1.6 oz DATE OF STUDY: 06/07/[address]: Monique Mcgee MD 2-DIMENSIONAL: YES M.MODE: YES DOPPLER: YES COLOR FLOW: YES TDS: PORTABLE: YES DEFINITY: BUBBLE STUDY: DIAGNOSIS: CORONARY ARTERY DISEASE/ PREOP CARDIAC HISTORY: CATHERIZATION: SURGERY: YES PROSTHETIC VALVE: PACEMAKER: MEASUREMENTS (cm) DIASTOLIC (NORMALS) SYSTOLIC (NORMALS) IVSd 1.1 (0.6-1.2) LA Diam 3.2 (1.9-4.0) LVEF 55% LVIDd 3.9 (3.5-5.7) LVIDs 3.1 (2.0-3.5) %FS 21% LVPWd 1.0 (0.6-1.2) Ao Diam 2.9 (2.0-3.7) 2 DIMENSIONAL ASSESSMENT: RIGHT ATRIUM: NORMAL LEFT ATRIUM: NORMAL RIGHT VENTRICLE: NORMAL LEFT VENTRICLE: NORMAL TRICUSPID VALVE: MILD TRICUSPID REGURGITATION MITRAL VALVE: MILD TO MODERATE MITRAL REGURGIATION PULMONIC VALVE: NORMAL AORTIC VALVE: NORMAL PERICARDIAL EFFUSION: NONE AORTIC ROOT: NORMAL LEFT VENTRICULAR WALL MOTION: NORMAL DOPPLER/COLOR FLOW: MILD AORTIC INSUFFICIENCY, MILD TO MODERATE MITRAL REGURGITATION. COMMENTS: NORMAL LEFT VENTRICULAR EJECTION FRACTION 55-60%. NORMAL WALL MOTION. MILD AORTIC INSUFFICIENCY/ TRICUSPID REGURGITATION. MODERATE MITRAL REGURGITATION. TECHNOLOGIST: MEGAN DIOXN
[2022-06-08] MEDS: PANTOPRAZOLE 40 MG INJ IVP SCH ×2 (08:18→17:10)
--- NOTE | 2022-06-08 15:07 | PN ---
Date of Progress Note: 06/08/2022 Subjective: Seen by bedside. Clinically doing well. Review of Systems: No chest pain, shortness of breath, orthopnea, cough. No nausea, vomiting. Has diarrhea. All other systems reviewed are negative. Physical Examination: Vital Signs: Reviewed. Head and Neck: Pupils are equal, reactive to light. Intact eye movements. No JVD. No cervical. N zohreh is supple. Thyroid is not enlarged. Lungs: Clear to auscultation bilaterally. No rhonchi, wheezing, or crackles. No accessory muscle u se. Heart: Regular rate and rhythm. No extra sounds. Abdomen: Soft, slightly distended. Bowel sounds positive. Extremities: No clubbing, cyanosis. Intact pulses. Skin: No rash. Neurologic: Alert, awake, without acute focal deficits appreciated. Lymph Nodes: No cervical or axillary lymphadenopathy. Investigations: Labs were reviewed. Assessment And Recommendations: Preop cardiac assessment. If the patient will need to have a surgic al intervention for small bowel obstruction, can proceed. No further cardiac workup is recommended o n an outpatient basis. Cardiology service will sign off. I will be available for any further questi ons. /MODL Voice ID: [id number] Report ID: [id number]
[2022-06-08] MEDS ORDERED: BACLOFEN 10 MG TAB PO ONE (16:10)
[2022-06-08] MEDS ORDERED: PANTOPRAZOLE 40 MG INJ IVP SCH (17:00)
[2022-06-08] MEDS: ENSURE CLEAR 200 ML CAN PO SCH (20:27)
[2022-06-08] MEDS: MELATONIN 5 MG TABLET PO PRN (20:27)
[2022-06-08] MEDS: METOCLOPRAMIDE 10 MG/2mL INJ IV SCH (21:49)
[2022-06-08] MEDS ORDERED: METOCLOPRAMIDE 10 MG/2mL INJ IV ONE (22:00)
[2022-06-08] MEDS ORDERED: POTASSIUM CL SA 10 MEQ TAB PO ONE (22:00)
--- NOTE | 2022-06-08 23:01 | PN ---
Date of Progress Note: 06/08/2022 Subjective: Mr. Bernal is an 81-year-old patient who comes to us with abdominal pain and was found to have small bowel obstruction yesterday with the small bowel series and after the small bowel series a nd ambulation, he started to have a lot of bowel movement all night the same way. Today he feels gre at. Abdomen is soft and depressible. He is having bowel movement. We even did an x-ray today that shows the contrast passing from the small bowel to the large bowel. Physical Examination: Chest: Clear. Abdomen: Soft and depressible. No guarding or rebound. Extremities: Good capillary refill. Assessment And Plan: I had discussed the case previously with the family about the options of laparo ray. I discussed the case today with also the primary doctor. In view of this new findings of shukri ent just becoming asymptomatic and having bowel movement and flatus then as discussed before, we will treat this conservatively. We had explained to the family previously that if he does better and the obstruction resolves, still we should electively fix the hernia he has because it may not be just th e only cause of it, but may also exacerbate his conditions. Obviously, they understand he is weak at this moment and he has also some changes mentally that they want to address first and also the COVID , so I understand that part. If they change their mind and want to go for the exploration, then they will let me know again. LACIE/MICHAEL Voice ID: [id number] Report ID: [id number]
[2022-06-09] MEDS: PIPER TAZO 3.375 GM in NA CHLORIDE 0.9% 100 ML IV SCH ×3 (01:21→17:04)
[2022-06-09 06:30] LABS: BUN Blood Urea Nitrogen < 3 mg/dL (7-18); Bicarbonate 28 mmol/L (21-32); Glomerular Filtration Rate 92 ml/min (=/>90); Glucose Level 121 mg/dL (74-106); Potassium 3.8 mmol/L (3.5-5.1); Sodium Level 141 mmol/L (136-145)
[2022-06-09] MEDS: D5 0.45 NS 1,000 ML IV SCH ×2 (08:43→21:43)
[2022-06-09] MEDS: ENSURE CLEAR 200 ML CAN PO SCH ×2 (08:46→21:00)
[2022-06-09] MEDS: PANTOPRAZOLE 40 MG INJ IVP SCH ×2 (08:48→17:04)
[2022-06-09] MEDS ORDERED: POTASSIUM CL SA 10 MEQ TAB PO ONE (09:00)
--- NOTE | 2022-06-09 12:19 | RAD REPORT ---
EXAM DESCRIPTION: RAD - Abdomen 1 View (KUB) - 06/09/2022 12:01 pm CLINICAL HISTORY: resolution of SBO COMPARISON: <Comparisons> KUB 06/08/2022 FINDINGS: Multiple distended to mildly dilated small bowel loops are still present. Pattern is not s ignificantly different from comparison. There has been some continued antegrade movement of the contr ast column with only a small amount of small bowel contrast remaining. Colon contrast has accumulated with no significant reduction in the colon volume since prior imaging. No free air or pneumatosis. No extraluminal contrast. IMPRESSION: Distended to mildly dilated small bowel loops remain. No free air or pneumatosis have de veloped. There is been further antegrade movement of the contrast with only a small amount of contrast remaini ng in distal small bowel.
[2022-06-09] MEDS ORDERED: METOCLOPRAMIDE 10 MG/2mL INJ IV SCH (21:00)
[2022-06-09] MEDS: MELATONIN 5 MG TABLET PO PRN (21:42)
[2022-06-09] MEDS: METOCLOPRAMIDE 10 MG/2mL INJ IV SCH (21:42)
[2022-06-10] MEDS: PIPER TAZO 3.375 GM in NA CHLORIDE 0.9% 100 ML IV SCH ×2 (01:27→09:13)
[2022-06-10] MEDS: ONDANSETRON 4 MG/2 ML VIAL IV PRN (02:38)
[2022-06-10 05:09] VITALS: O2SAT 98
[2022-06-10 05:50] LABS: Bicarbonate 28 mmol/L (21-32); Glomerular Filtration Rate 92 ml/min (=/>90); Glucose Level 110 mg/dL (74-106); Potassium 3.5 mmol/L (3.5-5.1); Sodium Level 140 mmol/L (136-145)
[2022-06-10 05:51] LABS: BUN Blood Urea Nitrogen < 3 mg/dL (7-18)
[2022-06-10] MEDS ORDERED: POTASSIUM CL SA 10 MEQ TAB PO ONE (07:00)
[2022-06-10 08:17] VITALS: BP 131/71; TEMP 96.7
[2022-06-10] MEDS: D5 0.45 NS 1,000 ML IV SCH (08:55)
[2022-06-10] MEDS: ENSURE CLEAR 200 ML CAN PO SCH (09:00)
[2022-06-10] MEDS: PANTOPRAZOLE 40 MG INJ IVP SCH (09:12)
== END 2022-06-10 13:38 | disposition home or self-care (01) | DRG 393 ==
LOC: ER 20:23 → ERHOLD 06-04 00:31 → 4TH 06-04 02:04
PROVIDERS: ADMIT Internal Medicine Sleep Medicine; ATTEND Hospitalist
DX: K43.6 Other and unspecified ventral hernia with obstruction, without gangrene (principal); U07.1 COVID-19; I10 Essential (primary) hypertension; E87.6 Hypokalemia; K59.00 Constipation, unspecified; I25.10 Atherosclerotic heart disease of native coronary artery without angina pectoris; F03.90 Unspecified dementia, unspecified severity, without behavioral disturbance, psychotic disturbance, mood disturbance, and anxiety; D72.829 Elevated white blood cell count, unspecified; I25.2 Old myocardial infarction; Z95.1 Presence of aortocoronary bypass graft; Z28.310 Unvaccinated for COVID-19
CPT/HCPCS: 36415; 74018; 74177; 74250; 80048; 80053; 81003; 81015; 82533; 82947; 83605; 83690; 84132; 85025; 85610; 85730; 86850; 86900; 86901; 87040; 87811; 93005; 93306; 96361; 96365; 96375; 97161; 99285; C9113; J2405; J2543; J2765; J3480; J7030; J7040; J7120; J7799; Q9967